=== PATIENT | female | born 1960 | race Caucasian/White ===

== ENCOUNTER 2020-06-11 20:49 | Emergency (ER) | payer MEDICAID, SELFPAY ==
[2020-06-11 21:04] VITALS: BP 143/85; PULSE 88; RESP 18; TEMP 37; O2SAT 97; BMI 34.5
--- NOTE | 2020-06-11 22:00 | ED_ITS ---
HPI - General Adult General Chief complaint: General Medical Stated complaint: FLU LIKE SYMPTOMS Time Seen by Provider: 06/11/20 22:00 Source: patient and seismic interpreter Mode of arrival: ambulatory Limitations: no limitations History of Present Illness HPI narrative: This is a 59-year-old female with past medical history of hypertension who presents with onset of body aches today and was exposed to a COVID-19 positive individual on Wednesday. Otherwise, patient denies any fevers, chills, sore throat, cough, shortness of breath, chest pain /palpitations, GI symptoms, or symptoms. Related Data Allergies Allergy/AdvReac Type Severity Reaction Status Date / Time shrimp [SHRIMP] Allergy Severe ANAPHYLAXIS Verified 06/11/20 21:04 Review of Systems Review of Systems: Pertinent positives and negatives as stated in HPI 10 point review of systems is otherwise negative. [facility] Past Medical History Source: nursing notes reviewed Medical History Glaucoma HTN (hypertension) Thyroid activity decreased Social History Social History Advance Directives: No Advance Directives Information Provided: Yes Physical Exam Vital Signs: Vital Signs: Vital Signs Temp Pulse Resp BP Pulse Ox 06/11/20 21:04 98.6 F 88 18 143/85 H 97 Body Mass Index 34.5 VITAL SIGNS: Reviewed. GENERAL: Well developed, well nourished, in no acute distress. HEAD: Normocephalic/atraumatic, EYES: PERRLA, EOMI intact without pain, no nystagmus/pallor/icterus noted EARS: Ext canals without abnormality, TMs non-bulging and non-erythematous NOSE: Nares patent bilateral OROPHARYNX: no oral lesions noted, posterior pharynx clear and non-erythematous without noted tonsillar enlargement/erythema/exudates NECK: Supple, no adenopathy LUNGS: Normal breath sounds. No adventitious sounds or accessory muscle use. SpO2<97%> CARDIOVASCULAR: Regular rate and rhythm without noted murmurs, no JVD or lower extremity edema. ABDOMEN: Soft, non-tender, non-distended with bowel sounds. No rigidity. No guarding. No palpable masses or hernias noted MUSCULOSKELETAL: No tenderness, deformities, or effusions noted on gross insp ection. EXTREMITIES: No cyanosis, clubbing or edema. SKIN: Inspection of the skin reveals no rashes, ulcerations, jaundice, pallor, or petechiae. NEUROLOGIC: Alert and oriented x 4. Strength and sensation to light touch were grossly intact x 4. Course Course Course Narrative: This is a 59-year-old female with history and clinical presentation most consistent with likely viral syndrome and will be tested for COVID-19 as she was exposed. Due to negative history and clinical presentation no other lab work or imaging is indicated at this time. Discharge Plan Discharge Clinical Impression: Acute viral syndrome Patient Disposition: Home, Self-Care Instructions: Viral Syndrome (ED) Additional Instructions: 1. Incrementar la hidrataci?n de los fluidos, especialmente con agua. 2. Efraín un seguimiento con benjamin proveedor de atenci?n primaria llamando al consultorio por la ma?joy para establecer henry carlos de seguimiento. 3. Debe permanecer en cuarentena hasta que lo llamen con los resultados de COVID-19. 4. Puede tratar watson albert corporales con Tylenol o ibuprofeno de venta tomy romi se indica en el empaque exterior. El paciente y / o la jeanne reconocen que comprenden los resultados (seg?n corresponda), el diagn?stico, el plan de tratamiento, la necesidad de seguimiento y los s?ntomas que deber?an impulsar el regreso a la wenceslao de emergencias. Referrals: Physician,Unknown [Primary Care Provider] - 2 days ( Follow-up for viral syndrome) Print Language: Palestinian
== END 2020-06-11 22:28 | disposition home or self-care (01) ==
PROVIDERS: Emergency Provider Student in an Organized Health Care Education/Training Program
DX: B34.9 Viral infection, unspecified (principal); Z20.828 Contact with and (suspected) exposure to other viral communicable diseases; I10 Essential (primary) hypertension
CPT/HCPCS: 87635; 99283

== ENCOUNTER 2020-06-20 09:59 | Outpatient (REF) | payer MEDICAID, SELFPAY | END 2020-06-20 10:00 | disposition home or self-care (01) | LOC: HO.LAB 09:59 | PROVIDERS: PCP Internal Medicine; Visit Provider Internal Medicine | DX: Z20.828 Contact with and (suspected) exposure to other viral communicable diseases (principal) | CPT/HCPCS: 87635 ==

== ENCOUNTER 2020-10-02 09:37 | Outpatient (REF) | payer MEDICAID, SELFPAY | END 2020-10-02 09:38 | disposition home or self-care (01) | LOC: HO.LAB 09:37 | PROVIDERS: Visit Provider Internal Medicine | DX: Z20.822 Contact with and (suspected) exposure to COVID-19 (principal) | CPT/HCPCS: 36415; C9803; U0003; U0005 ==

== ENCOUNTER 2021-02-07 10:36 | Outpatient (REF) | payer MEDICAID, SELFPAY ==
--- NOTE | ~2021-02-07 | MM_ITS ---
EXAMINATION: MM SCREENING DIGITAL BREAST TOMOSYNTHESIS, BILATERAL CLINICAL INFORMATION: Screening. Asymptomatic. The lifetime risk of breast cancer based on the Tyrer-Cuzick Model is 5%. COMPARISON: Mammography: 08/12/2018 (new baseline) TECHNIQUE: Digital breast tomosynthesis is performed in both the craniocaudal and mediolateral oblique views along with computer-aided detection (CAD). Synthesized 2D images are generated from the tomosynthesis. FINDINGS: There are scattered areas of fibroglandular density (ACR BI-RADS breast composition Category b). There are no significant masses, abnormal calcifications, or other abnormalities. Parenchymal pattern is similar to prior new baseline exam. The axilla and skin contours are unremarkable. MM/MM tomosynthesis screening BI IMPRESSION: No mammographic evidence of malignancy. ASSESSMENT: BI-RADS 1: Negative RECOMMENDATION: Routine annual mammography screening. This patient's information was entered into a reminder system with a target due date for their next mammogram.
== END 2021-02-07 10:37 | disposition home or self-care (01) ==
LOC: HO.MAMMO 10:36
PROVIDERS: PCP Internal Medicine; Visit Provider Internal Medicine
DX: Z12.31 Encounter for screening mammogram for malignant neoplasm of breast (principal)
CPT/HCPCS: 77063; 77067

== ENCOUNTER 2021-06-02 12:41 | Emergency (ER) | payer MEDICAID, SELFPAY ==
[2021-06-02 13:19] VITALS: BP 163/103; PULSE 79; RESP 18; TEMP 37.6; O2SAT 97; BMI 33.8
[2021-06-02 18:28] LABS: COVID-19 Test Negative (Negative)
[2021-06-02 19:18] VITALS: BP 178/105; PULSE 82; RESP 18; TEMP 36.8; O2SAT 96
--- NOTE | 2021-06-02 20:08 | ED.URI ---
HPI - URI/Sore Throat General Chief Complaint: Upper Respiratory Symptoms Stated Complaint: sore throat Time Seen by Provider: 06/02/21 20:02 Source: patient and old records reviewed History of Present Illness HPI Narrative: Patient presents with 1 week of cough and occasional wheezing. History of COVID-19 infection in 2019. No recent exposures. No fevers or chills. She states occasionally she feels like she is wheezing. She does not have an asthma inhaler anymore. Positive sore throat. No difficulty swallowing. No nausea or vomiting or abdominal symptoms Related Data Previous Rx's Medication Instructions Recorded acetaminophen 325 mg-DM 10 mg/10 20 ml PO Q4H PRN #237 ml 06/02/21 mL oral liquid (Robitussin Cough-Sore Throat) albuterol sulfate 90 mcg/actuation 2 puff INHALATION QID PRN #6.7 g 06/02/21 aerosol inhaler prednisone 20 mg tablet 40 mg PO DAILY #10 tab 06/02/21 Allergies Allergy/AdvReac Type Severity Reaction Status Date / Time shrimp [SHRIMP] Allergy Severe ANAPHYLAXIS Verified 06/11/20 21:04 Review of Systems Constitutional: Constitutional: Denies fever(s) Cardiovascular: Cardiovascular: Denies chest pain Respiratory: Respiratory: Reports chest congestion and Reports cough Comments: No phlegm. Positive wheezing Gastrointestinal: Comments: No nausea vomiting or abdominal pain Integumentary/Breasts: Comments: No rash PMFSH Past Medical History Medical History (Updated 06/02/21 @ 20:13 by Jeromy Gonzalez MD) Asthma Glaucoma HTN (hypertension) Thyroid activity decreased Social History Social History Alcohol intake: never Advance Directives: No Physical Exam Vital Signs: Vital Signs: Last Vital Signs Temp 98.3 F 06/02/21 19:18 Pulse 82 06/02/21 19:18 Resp 18 06/02/21 19:18 BP 178/105 H 06/02/21 19:18 Pulse Ox 96 06/02/21 19:18 Body Mass Index 33.8 Hypertensive. Heart rate normal. Oxygen saturation 96% Const: Other: Awake and alert and in no acute distress HENMT: Other: Minimal pharyngeal erythema without exudate or swelling. No anterior lymphadenopathy. Mild clear rhinorrhea Resp: Other: Clear bilaterally but mildly diminished. No obvious wheezing at the moment Cardio: Other: Regular rate and rhythm without murmurs rubs or gallops GI: Other: Soft nontender nondistended Skin: Other: Warm pink and dry without rash Course Course Course Narrative: COVID-19 infection Viral URI No evidence of bacterial infection Avid rapid ID COVID swab is negative. Patient is approximately 1 year post COVID infection and relatively low risk. Likely other viral source URI. Will prescribe Robitussin for the cough Prednisone and albuterol for her asthma MDM - URI/Sore Throat Lab Data Labs: Lab Results 06/02/21 Range/Units 18:05 COVID-19 (EAN) Negative (Negative) COVID-19 Clin Com See Note Discharge Plan Discharge Clinical Impression: Upper respiratory infection Qualifiers: URI type: unspecified viral URI Qualified Code(s): J06.9 - Acute upper respiratory infection, unspecified Asthma Qualifiers: Asthma severity: mild Asthma persistence: intermittent Asthma complication type: with acute exacerbation Qualified Code(s): J45.21 - Mild intermittent asthma with (acute) exacerbation Patient Disposition: Home, Self-Care Instructions: Asthma (ED), Upper Respiratory Infection (ED) Prescriptions: New Robitussin Cough-Sore Throat 325-10 mg/10 mL liquid 20 ml PO Q4H PRN (Reason: cold symptoms) Qty: 237 RF: 0 prednisone 20 mg tablet 40 mg PO DAILY Qty: 10 RF: 0 albuterol sulfate 90 mcg/actuation HFA aerosol inhaler 2 puff inhalation QID PRN (Reason: shortness of breath or wheezing) Qty: 6.7 RF: 0
== END 2021-06-02 20:23 | disposition home or self-care (01) ==
PROVIDERS: Emergency Provider Emergency Medicine; PCP Internal Medicine
DX: J45.21 Mild intermittent asthma with (acute) exacerbation (principal); J06.9 Acute upper respiratory infection, unspecified; I10 Essential (primary) hypertension; Z20.822 Contact with and (suspected) exposure to COVID-19
CPT/HCPCS: 36415; 87635; 99283

== ENCOUNTER 2021-12-27 04:18 | Emergency (ER) | payer MEDICAID, SELFPAY ==
[2021-12-27 04:36] VITALS: BP 183/87; BP 185/93; PULSE 83; RESP 16; TEMP 36; TEMP 36.6; O2SAT 96; O2SAT 97; BMI 33.6
[2021-12-27 05:07] LABS: COVID-19 Test Negative (Negative); IDNOW Serial# 16C4AD1C; Influenza A Negative (Negative); Influenza B2 Negative (Negative)
[2021-12-27 06:01] VITALS: BP 184/99; PULSE 75; RESP 20; TEMP 36.8; O2SAT 98
--- NOTE | 2021-12-27 07:15 | ED_ITS ---
HPI - Headache General Chief Complaint: Headache Stated Complaint: migraine & vomiting Time Seen by Provider: 12/27/21 07:13 History of Present Illness HPI Narrative: Patient is 61 years old presents today with having headache mainly over the left side. There is positive photophobia there is no neck pain is no fever the pain is similar to previous bouts of migraine. There is no focal weakness. Patient from home. Light makes the headache worse sound makes the headache worse. Barbara ent from home. Related Data Previous Rx's Medication Instructions Recorded acetaminophen 325 mg-DM 10 mg/10 20 ml PO Q4H PRN #237 ml 06/02/21 mL oral liquid (Robitussin Cough-Sore Throat) albuterol sulfate 90 mcg/actuation 2 puff INHALATION QID PRN #6.7 g 06/02/21 aerosol inhaler prednisone 20 mg tablet 40 mg PO DAILY #10 tab 06/02/21 ibuprofen 400 mg tablet 400 mg PO Q6H PRN #20 tab 12/27/21 ondansetron 4 mg disintegrating 4 mg PO TID PRN 5 Days #10 tab 12/27/21 tablet Allergies Allergy/AdvReac Type Severity Reaction Status Date / Time shrimp [SHRIMP] Allergy Severe ANAPHYLAXIS Verified 06/11/20 21:04 Review of Systems Review of Systems: Positive headache positive nausea positive vomiting Yes all other systems are reviewed and are negative PMFSH Past Medical History Attestation statement: The following information was validated with the patient. Medical History Asthma Glaucoma HTN (hypertension) Thyroid activity decreased Social History Social History Alcohol intake: never Patient Tobacco Use Status: Never used Tobacco Use of substances other than those prescribed or required for medical reasons: No Advance Directives: No Advance Directives Information Provided: Yes Physical Exam Vital Signs: Vital Signs: Last Vital Signs Temp 98.3 F 12/27/21 06:01 Pulse 81 12/27/21 07:38 Resp 16 12/27/21 07:38 BP 170/91 H 12/27/21 07:38 Pulse Ox 96 12/27/21 07:38 BMI result Body Mass Index 33.6 Appearance: Alert. Oriented X3. No acute distress. Eyes: Pupils equal, round and reactive to light. ENT: Pharynx normal. Neck: Normal inspection. Neck supple. No lymph nodes noted. No crepitus CVS: Normal heart rate and rhythm. Pulses normal. Normal S1 and S2 Respiratory: No respiratory distress. Breath sounds normal. No Wheezing. No rales Abdomen: Soft and nontender. No rigidity. No distention. good BS x4 Skin: Skin warm and dry. Normal skin color. Normal skin turgor. Extremities: No lower extremity edema. Neurovascular intact to all extremities. No Lacerations. No Rash Neuro: Oriented X 3. No motor deficit. No sensory deficit. Moving all extermities. No slurred speech MDM - Headache MDM Narrative Medical decision making narrative: Patient given treatment for migraine including Reglan Toradol Benadryl with good results. Headache completely resolved. Patient's intra-ocular pressure was 12 OS, OD. Will discharge patient home. In stable condition. Differential Diagnosis Differential diagnosis: Likely migraine Medical Records Attestation: I reviewed the patient's medical records. Lab Data Attestation: I reviewed the patient's lab results. Labs: Lab Results 12/27/21 12/27/21 Range/Units 04:41 04:41 COVID-19 (EAN) Negative (Negative) COVID-19 Clin Com See Note Influenza Type A (JUAN) Negative (Negative) Influenza Type B (JUAN) Negative (Negative) Influenza A & B Note See Note Discharge Plan Discharge Clinical Impression: Migraine Patient Disposition: Home, Self-Care Instructions: Migraine Headache (ED) Prescriptions: New ibuprofen 400 mg tablet 400 mg PO Q6H PRN (Reason: pain) Qty: 20 0RF ondansetron 4 mg tablet,disintegrating 4 mg PO TID PRN (Reason: nausea and vomiting) 5 Days Qty: 10 0RF No Action Robitussin Cough-Sore Throat 325-10 mg/10 mL liquid 20 ml PO Q4H PRN (Reason: cold symptoms) Qty: 237 0RF prednisone 20 mg tablet 40 mg PO DAILY Qty: 10 0RF albuterol sulfate 90 mcg/actuation HFA aerosol inhaler 2 puff inhalation QID PRN (Reason: shortness of breath or wheezing) Qty: 6.7 0RF Referrals: Francisca Perez MD [Primary Care Provider] - Print Language: Malay
[2021-12-27 07:38] VITALS: BP 170/91; PULSE 81; RESP 16; O2SAT 96
[2021-12-27] MEDS: diphenhydrAMINE HCL 50 MG/ML VIAL 25 MG IVPUSH (07:54)
[2021-12-27] MEDS: Ketorolac Tromethamine 30 MG/ML VIAL IVPUSH (07:55)
[2021-12-27] MEDS: Metoclopramide HCl 10 MG/2 ML VIAL IVPUSH (07:57)
[2021-12-27] MEDS: 0.9 % Sodium Chloride 1,000 ML 999 ML IV (08:00)
--- NOTE | 2021-12-27 08:03 | PC.NURSE ---
pt a&ox3, vss - bp elevated, hx of hypertension, 20G IV placed right hand, medicated per provider order, flds running. edging machine feeder in room. family at bedside.
[2021-12-27 09:09] VITALS: BP 152/71; PULSE 89; RESP 18; TEMP 36.7; O2SAT 96
== END 2021-12-27 09:13 | disposition home or self-care (01) ==
PROVIDERS: Emergency Provider Emergency Medicine Emergency Medical Services; PCP Internal Medicine
DX: G43.009 Migraine without aura, not intractable, without status migrainosus (principal); I10 Essential (primary) hypertension; J45.909 Unspecified asthma, uncomplicated; Z20.822 Contact with and (suspected) exposure to COVID-19
CPT/HCPCS: 87502; 87635; 96361; 96374; 96375; 99284; 99285; J1200; J1885; J2765

== ENCOUNTER 2022-02-12 11:36 | Outpatient (REF) | payer MEDICAID, SELFPAY ==
--- NOTE | ~2022-02-12 | MM_ITS ---
EXAMINATION: MM SCREENING DIGITAL BREAST TOMOSYNTHESIS, BILATERAL CLINICAL INFORMATION: Screening. Asymptomatic. The lifetime risk of breast cancer based on the Tyrer-Cuzick Model is 5%. COMPARISON: Mammography: February 07, 2021 and August 12, 2018 TECHNIQUE: Digital breast tomosynthesis is performed in both the craniocaudal and mediolateral oblique views along with computer-aided detection (CAD). Synthesized 2D images are generated from the tomosynthesis. FINDINGS: There are scattered areas of fibroglandular density (ACR BI-RADS breast composition Category b). There are no significant masses, abnormal calcifications, or other abnormalities. MM/MM tomosynthesis screening BI IMPRESSION: There are no significant changes from prior study. ASSESSMENT: BI-RADS 1: Negative RECOMMENDATION: Routine annual mammography screening. This patient's information was entered into a reminder system with a target due date for their next mammogram.
== END 2022-02-12 11:37 | disposition home or self-care (01) ==
LOC: HO.MAMMO 11:36
PROVIDERS: PCP Internal Medicine; Visit Provider Internal Medicine
DX: Z12.31 Encounter for screening mammogram for malignant neoplasm of breast (principal)
CPT/HCPCS: 77063; 77067

== ENCOUNTER 2022-03-14 16:50 | Emergency (ER) | payer MEDICAID, SELFPAY ==
[2022-03-14 17:44] VITALS: BP 122/66; PULSE 84; RESP 18; TEMP 36.9; O2SAT 95; BMI 33.3
[2022-03-14 18:27] LABS: MANUAL DIFF FLAG NO
[2022-03-14 18:30] LABS: Basophils Absolute Auto 0.1 X10*3/uL (0.0-0.2); Basophils Percent Auto 0.4 % (0-2); Eosinophils Absolute Auto 0.1 X10*3/uL (0.0-0.4); Eosinophils Percent Auto 0.4 % (0-4); Hematocrit 43.4 % (37.0-47.0); Hemoglobin 14.2 g/dl (12.0-16.0); Imm Gran Abs Auto 0.05 X10*3/uL (0.00-0.03); Imm Gran Pct Auto 0.4 % (0.0-0.4); Lymphocytes Absolute Auto 4.5 X10*3/uL (1.2-4.9); Lymphocytes Percent Auto 34.8 % (20-40); Mean Corpuscular HGB Conc 32.7 g/dl (31.0-35.0); Mean Corpuscular Hemoglobin 30.5 pg (27.0-33.0); Mean Corpuscular Volume 93.3 fL (80.0-98.0); Mean Platelet Volume 10.1 fL (9.4-12.3); Monocytes Absolute Auto 1.1 X10*3/uL (0.1-1.2); Monocytes Percent Auto 8.7 % (2-11); Neutrophils Absolute Auto 7.1 x10*3/uL (2.0-8.3); Neutrophils Percent Auto 55.3 % (45-73); Platelet Count 347 X10*3/uL (160-400); Red Blood Count 4.65 X10*6/uL (4.20-5.50); Red Cell Distribution Width 13.8 % (11.0-16.0); White Blood Count 12.8 X10*3/uL (4.8-10.8)
[2022-03-14 18:58] LABS: Anion Gap 16 (12-20); Blood Urea Nitrogen 23 mg/dL (9-16); Calcium 9.4 mg/dL (8.4-10.2); Carbon Dioxide 23 mmol/L (22-29); Chloride 102 mmol/L (96-108); Creatinine Clr Calc Pharmacy 58.6; Estimated Glomerular Filt Rate 52; Glucose Random 128 mg/dL (60-115); Lipase 47 U/L (8-78); Potassium 3.5 mmol/L (3.3-5.1); Sodium 137 mmol/L (135-145)
[2022-03-15 01:47] VITALS: BP 145/75; PULSE 93; RESP 14; O2SAT 97
[2022-03-15 02:26] LABS: Alanine Aminotransferase 20 U/L (0-31); Albumin Level 4.3 g/dL (3.5-5.0); Alkaline Phosphatase 100 U/L (39-117); Aspartate Amino Transferase 15 U/L (5-31); Bilirubin Direct < 0.2 mg/dL (0.0-0.5); Bilirubin Total 0.3 mg/dL (0.0-1.0); Total Protein 8.2 g/dL (6.5-8.0)
--- NOTE | 2022-03-15 03:17 | ED_ITS ---
HPI - Abdominal Pain General Chief Complaint: Abdominal Pain Stated Complaint: abdominal pain, feeling of weakness Time Seen by Provider: 03/15/22 01:48 Source: patient Mode of arrival: ambulatory Limitations: language barrier (Uzbek speaking only, computer hardware technician used) History of Present Illness HPI narrative: 61-year-old female who presents emergency department for evaluation of abdominal pain x2 weeks, worse in the last week. The patient states that she feels like her abdomen is bloated. She states that she has had a constant pain in her upper abdomen, worse in the epigastric area. The pain waxes and wanes in intensity and is 8/10 at its worst. The patient states that the pain is exacerbated by eating food in she develops pain immediately after eating. She states she is feeling very weak. She states that whenever she gets severe abdominal pain she also gets a headache. She states that she had 3 normal bowel movements yesterday. She denied fever, chills, rhinorrhea, sore throat, cough, chest pain, shortness of breath, nausea, vomiting or diarrhea. She has not noticed any dark black stools or bloody stools. Patient also states she was diagnosed with bronchitis 1 week prior and was given a Z-Sg which she completed. MD elicited complaint: abdominal pain Pain Consistency: constant (Waxes and wanes in intensity) Location: epigastric, LUQ and RUQ Severity: severe Pain scale (0-10): 8 Quality: other (Bloated sensation) Radiation: none Migration to: no migration Exacerbating factors: eating Relieving factors: nothing Related Data Previous Rx's Medication Instructions Recorded acetaminophen 325 mg-DM 10 mg/10 20 ml PO Q4H PRN cold symptoms 06/02/21 mL oral liquid (Robitussin #237 mL Cough-Sore Throat) albuterol sulfate 90 mcg/actuation 2 puff inhalation QID PRN 06/02/21 aerosol inhaler shortness of breath or wheezing #6.7 grams prednisone 20 mg tablet 40 mg PO DAILY #10 tabs 06/02/21 ibuprofen 400 mg tablet 400 mg PO Q6H PRN pain #20 tabs 12/27/21 ondansetron 4 mg disintegrating 4 mg PO TID PRN nausea and 12/27/21 tablet vomiting 5 days #10 tabs omeprazole 20 mg capsule,delayed 20 mg PO DAILY 30 days #30 caps 03/15/22 release Allergies Allergy/AdvReac Type Severity Reaction Status Date / Time shrimp [SHRIMP] Allergy Severe ANAPHYLAXIS Verified 03/14/22 17:49 Review of Systems Review of Systems Yes all other systems are reviewed and are negative [facility] Past Medical History [facility] Narrative: Past surgical history: Hernia repair. Social history: She denies tobacco, alcohol and drug use. Medical History Asthma Glaucoma HTN (hypertension) Thyroid activity decreased Social History Social History Alcohol intake: never Patient Tobacco Use Status: Never used Tobacco Advance Directives: No Physical Exam ED Vital Signs: Vital Signs - 24 hr 03/14/22 17:44 03/15/22 01:47 Temperature 98.5 F Pulse Rate 84 93 Respiratory Rate 18 14 Blood Pressure 122/66 145/75 H Pulse Oximetry 95 97 Oxygen Delivery Method Room Air Room Air BMI result Body Mass Index 33.3 Const General: cooperative and no acute distress Orientation/consciousness: oriented to person and oriented to place Limitations: no limitations HENMT Head: Yes normal to inspection, Yes normocephalic and Yes atraumatic Ears: external ears normal General nose exam: Normal external nose present Face and sinus: Yes normal facial exam Mouth: Normal oral and palatal mucosa present Throat: Yes posterior oropharynx normal Eyes General: appearance normal, both eyes and all related structures Pupils: Equal, round and reactive pupils present Neck Neck: Yes normal visual inspection, Yes no lymphadenopathy, Yes trachea midline and Yes supple Chest Chest palpation & inspection: normal inspection of the chest and normal palpation of entire chest wall Resp Effort & Inspection: normal respiratory effort and able to speak in complete sentences Auscultation: clear to auscultation bilaterally Cardio Rate: regular rate Rhythm: regular rhythm Heart sounds: S1 normal heart sound present, S2 normal heart sound present and no murmurs GI Inspection: Yes normal to inspection Palpation (GI): Soft to palpation, nontender and no guarding Auscultation: normal bowel sounds General: Yes no CVA tenderness Back/Spine/Pelvis Back: no CVA tenderness Skin General skin exam: no rashes or lesions noted Neuro General: oriented to person and oriented to place Cranial nerves: Yes CN's II-XII intact bilaterally and Yes Equal, round and reactive pupils present Cognition (Neuro): normal cognition Motor exam (neuro): 5/5 motor strength present throughout Extrem General: Yes normal to inspection Psych Appearance: grossly normal Speech and movement: Normal speech and movement present Affect: normal affect Attitude: cooperative Thought process: Normal thought process present Thought content: Normal thought content present Course Course Course Narrative: 61-year-old female who presents emergency department for evaluation of 2 weeks of constant upper abdominal pain that waxes and wanes in intensity, 8/10 at its worse, pain exacerbated immediately after eating. The patient had no fever, chills, nausea or vomiting. Vital signs were unremarkable and her abdominal exam revealed no abdominal tenderness. 0324: Laboratory evaluation: WBC elevated 12,800. BUN elevated 23. Glucose elevated 128. LFTs were normal. Lipase was normal. Given the fact the patient has no abdominal tenderness her laboratory evaluation is relatively unremarkable except for the elevated white blood cell count, I suspect the patient's pain is more consistent with gastritis as opposed to acute cholecystitis or appendicitis. I did discuss this with the patient. Patient was started on omeprazole 20 mg once a day for 1 month. The patient was given Maalox 30 cc, viscous lidocaine 10 cc and 10 cc orally for her pain. She was advised to take Tylenol for pain. She was given printed and verbal instructions and discharged home. MDM - Abdominal Pain Lab Data Result diagrams: 03/14/22 18:22 03/14/22 18:22 Labs: Lab Results 03/14/22 03/14/22 Range/Units 18:22 18:22 WBC 12.8 H (4.8-10.8) X10*3/uL RBC 4.65 (4.20-5.50) X10*6/uL Hgb 14.2 (12.0-16.0) g/dl Hct 43.4 (37.0-47.0) % MCV 93.3 (80.0-98.0) fL MCH 30.5 (27.0-33.0) pg MCHC 32.7 (31.0-35.0) g/dl RDW 13.8 (11.0-16.0) % Plt Count 347 (160-400) X10*3/uL MPV 10.1 (9.4-12.3) fL Immature Gran % (Auto) 0.4 (0.0-0.4) % Neut % (Auto) 55.3 (45-73) % Lymph % (Auto) 34.8 (20-40) % [place] % (Auto) 8.7 (2-11) % Eos % (Auto) 0.4 (0-4) % Baso % (Auto) 0.4 (0-2) % Lymph # (Auto) 4.5 (1.2-4.9) X10*3/uL [place] # (Auto) 1.1 (0.1-1.2) X10*3/uL Eos # (Auto) 0.1 (0.0-0.4) X10*3/uL Baso # (Auto) 0.1 (0.0-0.2) X10*3/uL Abs Immat Gran (auto) 0.05 H (0.00-0.03) X10*3/uL Absolute Neuts (auto) 7.1 (2.0-8.3) x10*3/uL Absolute Nucleated RBC 0.000 (0.0-0.012) X10*3/uL Nucleated RBC % (auto) 0.0 (0.0-0.2) /100WBC Sodium 137 (135-145) mmol/L Potassium 3.5 (3.3-5.1) mmol/L Chloride 102 (96-108) mmol/L Carbon Dioxide 23 (22-29) mmol/L Anion Gap 16 (12-20) BUN 23 H (9-16) mg/dL Creatinine 1.07 (0.5-1.4) mg/dL Estim Creat Clear Calc 58.6 Estimated GFR 52 Random Glucose 128 H (60-115) mg/dL Calcium 9.4 (8.4-10.2) mg/dL Total Bilirubin 0.3 (0.0-1.0) mg/dL Direct Bilirubin < 0.2 (0.0-0.5) mg/dL AST 15 (5-31) U/L ALT 20 (0-31) U/L Alkaline Phosphatase 100 (39-117) U/L Total Protein 8.2 H (6.5-8.0) g/dL Albumin 4.3 (3.5-5.0) g/dL Lipase 47 (8-78) U/L Discharge Plan Discharge Clinical Impression: Gastritis Patient Disposition: Home, Self-Care Instructions: Gastritis (ED) Additional Instructions: Your blood work was normal. Your abdominal exam revealed no tenderness when I push on your belly which is reassuring. I believe your pain is caused by inflammation of your stomach (gastritis). I am prescribing Prilosec (omeprazole) 20 mg once a day for 1 month. Take Tylenol (acetaminophen) 500 mg pills, 2 pills every 4 to 6 hours as needed for pain. Follow-up with your doctor in 2 days. Please return to the emergency department if your symptoms get worse or if you develop any symptoms that are concerning to you. Prescriptions: New omeprazole 20 mg capsule,delayed release(DR/EC) 20 mg PO DAILY 30 Days Qty: 30 0RF No Action Robitussin Cough-Sore Throat 325-10 mg/10 mL liquid 20 ml PO Q4H PRN (Reason: cold symptoms) Qty: 237 0RF prednisone 20 mg tablet 40 mg PO DAILY Qty: 10 0RF albuterol sulfate 90 mcg/actuation HFA aerosol inhaler 2 puff inhalation QID PRN (Reason: shortness of breath or wheezing) Qty: 6.7 0RF ibuprofen 400 mg tablet 400 mg PO Q6H PRN (Reason: pain) Qty: 20 0RF ondansetron 4 mg tablet,disintegrating 4 mg PO TID PRN (Reason: nausea and vomiting) 5 Days Qty: 10 0RF Print Language: Uzbek
[2022-03-15] MEDS: Lidocaine HCl Viscous 2 % 15 ML SOLUTION 10 ML PO (04:11)
[2022-03-15] MEDS: Magnesium Hydrox/Alum Hydrox 30 ML ORAL.SUSP PO (04:11)
[2022-03-15] MEDS: PHENobarb/Hyoscy/Atropine/Scop 10 ML ELIXIR PO (04:11)
== END 2022-03-15 04:22 | disposition home or self-care (01) ==
PROVIDERS: Emergency Provider Emergency Medicine Emergency Medical Services; PCP Internal Medicine
DX: K29.70 Gastritis, unspecified, without bleeding (principal); R10.12 Left upper quadrant pain; R10.11 Right upper quadrant pain; Z79.899 Other long term (current) drug therapy
CPT/HCPCS: 36415; 80048; 80076; 83690; 85025; 99283

== ENCOUNTER 2023-02-18 10:34 | Outpatient (REF) | payer MEDICAID, SELFPAY ==
--- NOTE | ~2023-02-18 | MM_ITS ---
EXAMINATION: MM SCREENING DIGITAL BREAST TOMOSYNTHESIS, BILATERAL CLINICAL INFORMATION: Screening. Asymptomatic. The lifetime risk of breast cancer based on the Tyrer-Cuzick Model is 5%. COMPARISON: Mammography: This study is compared with prior mammograms dating back to 2018. TECHNIQUE: Digital breast tomosynthesis is performed in both the craniocaudal and mediolateral oblique views along with computer-aided detection (CAD). Synthesized 2D images are generated from the tomosynthesis. FINDINGS: There are scattered areas of fibroglandular density (ACR BI-RADS breast composition Category b). There are no significant masses, abnormal calcifications, or other abnormalities. MM/MM tomosynthesis screening BI IMPRESSION: No mammographic evidence of malignancy. ASSESSMENT: BI-RADS BI-RADS 1 - Negative RECOMMENDATION: Routine annual mammography screening. 1 year F/U This patient's information was entered into a reminder system with a target due date for their next mammogram.
== END 2023-02-18 10:35 | disposition home or self-care (01) ==
LOC: HO.MAMMO 10:34
PROVIDERS: PCP Internal Medicine; Visit Provider Internal Medicine
DX: Z12.31 Encounter for screening mammogram for malignant neoplasm of breast (principal)
CPT/HCPCS: 77063; 77067

== ENCOUNTER → 2023-02-18 11:15 | Outpatient (BNV) | payer MEDICAID, SELFPAY | PROVIDERS: PCP Internal Medicine; Visit Provider Radiology Diagnostic Radiology | DX: Z12.31 Encounter for screening mammogram for malignant neoplasm of breast (principal) | CPT/HCPCS: 77063; 77067 ==

== ENCOUNTER 2023-09-09 08:41 | Outpatient (REF) | payer MEDICAID, SELFPAY ==
[2023-09-09 12:01] LABS: MANUAL DIFF FLAG NO
[2023-09-09 12:19] LABS: Estimated Average Glucose 111 mg/dL; Hemoglobin A1c % 5.5 % (<6.0)
[2023-09-09 12:21] LABS: Basophils Absolute Auto 0.1 X10*3/uL (0.0-0.2); Basophils Percent Auto 1.1 % (0-2); Eosinophils Absolute Auto 0.1 X10*3/uL (0.0-0.4); Hematocrit 41.3 % (37.0-47.0); Hemoglobin 13.4 g/dl (12.0-16.0); Imm Gran Abs Auto 0.02 X10*3/uL (0.00-0.03); Imm Gran Pct Auto 0.4 % (0.0-0.4); Lymphocytes Absolute Auto 2.3 X10*3/uL (1.2-4.9); Lymphocytes Percent Auto 42.4 % (20-40); Mean Corpuscular HGB Conc 32.4 g/dl (31.0-35.0); Mean Corpuscular Hemoglobin 30.8 pg (27.0-33.0); Mean Corpuscular Volume 94.9 fL (80.0-98.0); Mean Platelet Volume 11.1 fL (9.4-12.3); Monocytes Absolute Auto 0.5 X10*3/uL (0.1-1.2); Monocytes Percent Auto 9.3 % (2-11); Neutrophils Absolute Auto 2.4 x10*3/uL (2.0-8.3); Neutrophils Percent Auto 44.8 % (45-73); Platelet Count 319 X10*3/uL (160-400); Red Blood Count 4.35 X10*6/uL (4.20-5.50); Red Cell Distribution Width 13.6 % (11.0-16.0); White Blood Count 5.4 X10*3/uL (4.8-10.8)
[2023-09-09 13:01] LABS: Alanine Aminotransferase 21 U/L (0-31); Alkaline Phosphatase 95 U/L (39-117); Anion Gap 13 (12-20); Aspartate Amino Transferase 19 U/L (5-31); Bilirubin Direct 0.2 mg/dL (0.0-0.5); Bilirubin Total 0.4 mg/dL (0.0-1.0); Blood Urea Nitrogen 16 mg/dL (9-16); Calcium 9.6 mg/dL (8.4-10.2); Carbon Dioxide 26 mmol/L (22-29); Chloride 107 mmol/L (96-108); Cholesterol 210 mg/dL (<200); Estimated Glomerular Filt Rate > 60; Glucose Random 102 mg/dL (60-115); HDL Cholesterol 52 mg/dL (>40); LDL Cholesterol Calculated 129 mg/dL (<100); Potassium 3.7 mmol/L (3.3-5.1); Sodium 142 mmol/L (135-145); Total Protein 7.9 g/dL (6.5-8.0); Triglycerides 145 mg/dL (<150)
== END 2023-09-09 08:42 | disposition home or self-care (01) ==
LOC: HO.HHCL 08:41
PROVIDERS: Visit Provider Internal Medicine
DX: I10 Essential (primary) hypertension (principal)
CPT/HCPCS: 36415; 80048; 80061; 80076; 83036; 85025

== ENCOUNTER 2023-09-21 15:28 | Outpatient (REF) | payer MEDICAID, SELFPAY ==
[2023-09-28 04:38] LABS: HPV mRNA E6/E7 rflx Not Detected (Not Detected)
== END 2023-09-21 15:29 | disposition home or self-care (01) ==
LOC: HO.CHCLNP 15:28
PROVIDERS: Visit Provider Advanced Practice Midwife
DX: R87.610 Atypical squamous cells of undetermined significance on cytologic smear of cervix (ASC-US) (principal)
CPT/HCPCS: 87624; 88142

== ENCOUNTER 2024-03-03 09:53 | Outpatient (REF) | payer MEDICAID, SELFPAY | END 2024-03-03 09:54 | disposition home or self-care (01) | LOC: HO.MAMMO 09:53 | PROVIDERS: Visit Provider Internal Medicine | DX: Z12.31 Encounter for screening mammogram for malignant neoplasm of breast (principal) | CPT/HCPCS: 77063; 77067 ==

== ENCOUNTER → 2024-03-03 10:00 | Outpatient (BNV) | payer MEDICAID, SELFPAY | PROVIDERS: Visit Provider Radiology Diagnostic Radiology | DX: Z12.31 Encounter for screening mammogram for malignant neoplasm of breast (principal) | CPT/HCPCS: 77063; 77067 ==

== ENCOUNTER 2025-03-09 09:45 | Outpatient (REF) | payer MEDICAID, SELFPAY | END 2025-03-09 09:46 | disposition home or self-care (01) | LOC: HO.MAMMO 09:45 | PROVIDERS: PCP Internal Medicine; Visit Provider Internal Medicine | DX: Z12.31 Encounter for screening mammogram for malignant neoplasm of breast (principal) | CPT/HCPCS: 77063; 77067 ==

== ENCOUNTER → 2025-03-09 10:15 | Outpatient (BNV) | payer MEDICAID, SELFPAY | PROVIDERS: PCP Internal Medicine; Visit Provider Internal Medicine | DX: Z12.31 Encounter for screening mammogram for malignant neoplasm of breast (principal) | CPT/HCPCS: 77063; 77067 ==

== ENCOUNTER 2025-07-13 08:01 | Outpatient (REF) | payer MEDICAID, SELFPAY ==
--- OUTSIDE RECORDS SUMMARY | 2025-07-12 11:30 | XMS_ITS | Encounter Summary ---
Author Organization [employer] Address [address] [place] [address] Care Team Providers Care Biofuels Technology Development Manager Name Role Phone Francisca Perez MD Primary Care Provide r Encounter Details Date Type Department Care Team (Latest Contact Info) Description 07/12/2025 11:30 AM EST Office Visit [facility] [address] [place] [address] Francisca Perez MD [address] [place] [address] Pain in both thighs (Primary Dx); Essential hypertension; Left thigh pain; Gastroesophageal reflux disease without esophagitis; Acquired hypothyroidism Social History Tobacco Use Types Packs/Day Years Used Date Smoking Tobacco: Never Passive Smoke Exposure: Never Smokeless Tobacco: Never Alcohol Use Standard Drinks/Week Comments Never 0 (1 standard drink = 0.6 oz pur e alcohol) Depression Answer Date Recorded Patient Health Questionnaire-9 Score 0 07/12/2025 Patient Health Questionnaire-9 Score 0 07/12/2025 Last PHQ-9: Questionnaire Data Not on file 1 09/11/2024 Housing Stability Answer Date Recorded What is your housing situation today? I have myrnashana prajapati 07/05/[address] you li ve. Do you have problems with any of the following? None of the above 07/05/2025 Food Insecurity Answer Date Recorded Within the past 12 months, y ou worried that your food would run out before you got money to buy more: Never True 07/05/2025 Within the past 12 months,th e food you bought just didn't last and you didn't have enough money to get more: Never True Transportation Answer Date Recorded In the past 12 months, has l ack of transportation kept you from medical appts, meetings, work or from getting things needed for daily living? No 07/05/2025 Utilities Answer Date Recorded In the past 12 months, has t he electric, gas, oil or water company threatened to shut off services in your home? No 07/05/2025 Depression Answer Date Recorded Patient Health Questionnaire-2 Score 0 07/12/2025 Internet Access Answer Date Recorded Internet Access Q1 Yes 07/05/2025 Internet Access Q2 Not on file 07/05/2025 Comments No Sex and Gender Information Value Date Recorded Sex Assigned at Female 06/22/2022 10:16 AM EDT Legal Sex Female 10:16 AM EDT Gender Identity Female 06/22/2022 10:16 AM EDT Sexual Orientation Straight 06/22/2022 10 :16 AM EDT documented as of this encounter Last Filed Vital Signs Vital Sign Reading Time Taken Comments Blood Pressure 150/90 07/12/2025 11:36 AM EST pt did not take meds yest Pulse 97 07/12/2025 11:36 AM EST Temperature 36.1 C (97 F) 07/12/2025 11:36 AM EST Respiratory Rate 18 07/12/2025 11:3 6 AM EST Oxygen Saturation 95% 07/12/2025 11: 36 AM EST Inhaled Oxygen Concentration - - Weight 88.6 kg (195 lb 6.4 oz) 07/12/2025 11:36 AM EST Height 160 cm (5' 3 ) 07/12/2025 11:36 AM EST Body Mass Index 34.61 07/12/2025 11:36 AM EST documented in this encounter Functional Status * Over the past 2 weeks, how often have you been bothered by any of the following problems? Question Answer Date of Assessment Author Patient Health Questionnaire-2 Score 0 06/24 11:37 AM EST Rosie Almodovar MA * Little interest or pleasure in doing things Answer Date of Assessment Author Not at all 07/12/2025 11:37 AM EST Yara Almodovar MA * Feeling down, depressed, or hopeless Answer Date of Assessment Author Not at all 07/12/2025 11:37 AM EST Yara Almodovar MA * Trouble falling or staying asleep, or sleeping too much Answer Date of Assessment Author Not at all 07/12/2025 11:37 AM Yara Alberts MA * Feeling tired or having little energy Answer Date of Assessment Author Not at all 07/12/2025 11:37 AM Yara Alberts MA * Poor appetite or overeating Answer Date of Assessment Author Not at all 07/12/2025 11:37 AM Yara Alberts MA * Feeling bad about yourself - or that you are a failure or have let yourself or your family down Answer Date of Assessment Author Not at all 07/12/2025 11:37 AM Yara Alberts MA * Trouble concentrating on things, such as reading the newspaper or watching television Answer Date of Assessment Author Not at all 07/12/2025 11:37 AM Yara Alberts MA * Moving or speaking so slowly that other people could have noticed? Or the opposite - being so fidgety or restless that you have been moving around a lot more than usual. Answer Date of Assessment Author Not at all 07/12/2025 11:37 AM Yara Alberts MA * Thoughts that you would be better off or hurting yourself in some way Answer Date of Assessment Author Not at all 07/12/2025 11:37 AM Yara Alberts MA * Patient Health Questionnaire-9 Score Answer Date of Assessment Author 0 07/12/2025 11:37 AM Yara Alberts MA documented as of this encounter Progress Notes * Francisca Mckee MD - 07/12/2025 11:30 AM EST SUBJECTIVE: Shalini Abdul is a 65 y.o. year old female who presents for Chronic Disease Management . Shalini Abdul, age 65 Hypertension - History of elevated blood pressure - Previously prescribed a combination pill containing hydrochlorothiazide - Discontinued amlodipine after experiencing significant leg swelling during a trip to [place] in 2023 - Leg swelling resolved after stopping amlodipine - Currently taking losartan with hydrochlorothiazide - Reports episodes of high blood pressure, with readings up to 170/95 mmHg. - Reports facial discomfort and headache associated with elevated blood pressure - Medication for hypertension was discontinued, leading to uncontrolled blood pressure Muscle Pain - Reports pain in both thighs, sometimes situational - Pain described as muscular, with occasional radiation to the lower back - Previous emergency room visit for thigh pain; received topical diclofenac cream, which provided relief Headache - Reports frequent headaches, especially in the morning - Headaches associated with episodes of elevated blood pressure and facial discomfort Gastroesophageal Reflux/Acid Indigestion - Reports persistent acid reflux symptoms - Currently taking pantoprazole, but symptoms persist - Reports dietary indiscretion, including consumption of spicy, heavy, and late meals - Noted worsening of symptoms after eating late and heavy meals Thyroid Disorder - History of thyroid disorder - Levothyroxine was previously discontinued, but later resumed after discussion with provider [facility] - Reports allergy to shrimp Social History Social History Narrative Not on file Problem List[1] Shoulder pain Pharyngitis Obstructive sleep apnea syndrome Nausea and vomiting Mitral valve prolapse Increased frequency of urination Glaucoma Essential hypertension ASCUS of cervix with negative high risk HPV Anxiety Acquired hypothyroidism Gastroesophageal reflux disease without esophagitis Colon cancer screening Seasonal allergies Chronic periodontitis Periodontal disease Dental calculus Partial edentulism Normal oral exam Gingival bleeding Stage 3 grade B localized periodontitis per AAP/EFP 2017 classification Pain in both thighs Family History[2] Review of Systems Constitutional: Negative. HENT: Negative. Respiratory: Negative. Cardiovascular: Negative. Gastrointestinal: Positive for nausea and vomiting. Negative for abdominal distention and abdominalpain. GERD Musculoskeletal: Positive for myalgias. Neurological: Positive for headaches. OBJECTIVE: Vitals: 07/12/25 1136 BP: (!) 150/90 BP Location: Left arm Patient Position: Sitting BP Cuff Size: Adult Pulse: 97 Resp: 18 Temp: 97 ??F (36.1 ??C) TempSrc: Oral SpO2: 95% Weight: 195 lb 6.4 oz (88.6 kg) Height: 5' 3 (1.6 m) Physical Exam Constitutional: Appearance: Normal appearance. Cardiovascular: Rate and Rhythm: Normal rate and regular rhythm. Pulmonary: Effort: Pulmonary effort is normal. Breath sounds: Normal breath sounds. Abdominal: General: Abdomen is flat. Palpations: Abdomen is soft. Musculoskeletal: Right lower leg: No edema. Left lower leg: No edema. Neurological: Mental Status: She is alert. Follow Up: No follow-ups on file. Medications Ordered Prior to Encounter[3] Problem List Items Addressed This Visit Essential hypertension Relevant Medications carvedilol (Coreg) 6.25 MG tablet Other Relevant Orders CBC auto differential Comprehensive Metabolic Panel Hemoglobin A1c HIV-1/2 Antigen and Antibodies, Fourth Generation, with Reflexes Hepatitis C Antibody with Reflex to HCV, RNA, Quantitative, Real-Time PCR Lipid Panel, Standard Vitamin D, 25-Hydroxy, Total, Immunoassay TSH with Reflex to Free T4 Pain in both thighs - Primary Relevant Medications Diclofenac Sodium 1 % gel acetaminophen (Tylenol Extra Strength) 500 MG tablet cyclobenzaprine (Flexeril) 5 MG tablet Gastroesophageal reflux disease without esophagitis Relevant Medications carvedilol (Coreg) 6.25 MG tablet pantoprazole (ProtoNix) 20 MG EC tablet Acquired hypothyroidism Relevant Medications carvedilol (Coreg) 6.25 MG tablet Other Relevant Orders Vitamin D, 25-Hydroxy, Total, Immunoassay TSH with Reflex to Free T4 Other Visit Diagnoses Left thigh pain Relevant Medications Diclofenac Sodium 1 % gel acetaminophen (Tylenol Extra Strength) 500 MG tablet Essential hypertension: - Hypertension is poorly controlled, likely due to discontinuation of amlodipine. - Prescribed carvedilol 6.25 mg twice daily. Monitor blood pressure and report any changes. Follow-up scheduled for 4-6 weeks televisit Pain in both thighs: - Pain in thighs appears to be muscular in nature. - Prescribed acetaminophen and muscle relaxant. Recommended topical gel for application on thighs. - Risks and side effects: Muscle relaxant may cause drowsiness; advised to take at night and avoid driving. Gastroesophageal reflux disease without esophagitis: - Reflux symptoms exacerbated by dietary habits. - Increased pantoprazole dosage to 20 mg twice daily. Advised dietary modifications to avoid spicy,heavy, and acidic foods. Recommended elevating head of bed during sleep. Acquired hypothyroidism: - Ordered laboratory tests to assess thyroid function. Prescribed levothyroxine 25 mcg. This note was drafted using [employer]) technology. The patient/patient's guardian has been informed and has consented to the use of this technology: Yes [1] Patient Active Problem List Diagnosis Shoulder pain Pharyngitis Obstructive sleep apnea syndrome Nausea and vomiting Mitral valve prolapse Increased frequency of urination Glaucoma Essential hypertension ASCUS of cervix with negative high risk HPV Anxiety Acquired hypothyroidism Gastroesophageal reflux disease without esophagitis Colon cancer screening Seasonal allergies Chronic periodontitis Periodontal disease Dental calculus Partial edentulism Normal oral exam Gingival bleeding Stage 3 grade B localized periodontitis per AAP/EFP 2017 classification Pain in both thighs [2] No family history on file. [3] Current Outpatient Medications on File Prior to Visit Medication Sig Dispense Refill Anti-Diarrheal 2 MG tablet TAKE 1 TABLET BY MOUTH FOUR TIMES DAILY NEEDED FOR DIARRHEA 100 tablet 2 Betimol 0.5 % ophthalmic solution INSERT 1 DROP AFFECTED EYE(S) TWICE DAILY DIRECTED 5 mL 0 bimatoprost (Lumigan) 0.01 % ophthalmic solution apply in each eye at bed time Strength: 0.01 % 5 mL 5 chlorhexidine (Peridex) 0.12 % solution Use 15ml to rinse your mouth twice daily. Spit, do not swallow. 473 mL 0 levothyroxine (Synthroid, Levoxyl) 25 MCG tablet Take 1 tablet (25 mcg) by mouth in the morning. 90tablet 0 loratadine (Claritin) 10 MG tablet TAKE 1 TABLET BY MOUTH EVERY MORNING 90 tablet 0 losartan-hydroCHLOROthiazide (Hyzaar) 100-25 MG tablet TAKE 1 TABLET BY MOUTH EVERY DAY IN THE MORNING 90 tablet 0 sodium chloride ([place]) 0.65 % nasal spray 1-2 sprays on each nostril every 2-3 hours as needed for nasal congestion 30 mL 1 traZODone (Desyrel) 50 MG tablet TAKE 1 TABLET BY MOUTH DAILY AT BEDTIME NEEDED FOR SLEEP MAY TAKE 1 ADDITIONAL TABLET NEEDED FOR ANXIETY 45 tablet 5 Ventolin HFA 108 (90 Base) MCG/ACT inhaler INHALE 2 PUFFS BY MOUTH EVERY 4 TO 6 HOURS NEEDED 18 g 2 [DISCONTINUED] amLODIPine (Norvasc) 10 MG tablet TAKE 1 TABLET BY MOUTH EVERY DAY 90 tablet 0 [DISCONTINUED] Diclofenac Sodium 1 % gel APPLY 2 GRAMS TOPICALLY TO AFFECTED AREA(S) 4 TIMES A DAY IN THE MORNING, AT NOON, IN THE EVENING, AND AT BEDTIME NEEDED FOR PAIN 100 g 0 [DISCONTINUED] pantoprazole (ProtoNix) 20 MG EC tablet TAKE 1 TABLET BY MOUTH EVERY DAY DO NOT BREAK, CRUSH, DISSOLVE OR CHEW 90 tablet 0 [DISCONTINUED] pantoprazole (ProtoNix) 20 MG EC tablet Take 1 tablet (20 mg) by mouth before breakfast. Do not crush, chew, or split.TAKE 1 TABLET BY MOUTH EVERY DAY DO NOT BREAK, CRUSH, DISSOLVE OR CHEW 90 tablet 1 No current facility-administered medications on file prior to visit. documented in this encounter Plan of Treatment Upcoming Encounters Date Type Department Care Team (Late st Contact Info) Description 09/11/2025 10:45 AM EST Telemedicine [facility] [address] [place] [address] Francisca Perez MD [address] [place], [place] [phone] 09/25/2025 9:30 AM EST Office Visit [facility] [address] [place], [place] [phone] Mili, Britney [address] [place], [place] [phone] Scheduled Orders Name Type Priority Associated Diagnoses Orde r Schedule CBC auto differential Lab Routine Essential hypertension Expected: 07/12/2025 (Approximate), Expires: 07/12/2026 Comprehensive Metabolic Panel Lab Routine Essential hypertension Expected: 07/12/2025 (Approximate), Expires: 07/12/2026 Hemoglobin A1c Lab Routine Essential hypertension Expected: 07/12/2025 (Approximate), Expires: 07/12/2026 HIV-1/2 Antigen and Antibodies, Fourth Generation, with Reflexes Lab Routine Essential hypertension Expected: 07/12/2025 (Approximate), Expires: 07/12/2026 Hepatitis C Antibody with Reflex to HCV, RNA, Quantitative, Real-Time PCR Lab Routine Essential hypertension Expected: 07/12/2025, Expires: 07/12/2026 Lipid Panel, Standard Lab Routine Essential hypertension Expected: 07/12/2025 (Approximate), Expires: 07/12/2026 Vitamin D, 25-Hydroxy, Total, Immunoassay Lab Routine Essential hypertension Acquired hypothyroidism Expected: 07/12/2025 (Approximate), Expires: 07/12/2026 TSH with Reflex to Free T4 Lab Routine Essential hypertension Acquired hypothyroidism Expected: 07/12/2025 (Approximate), Expires: 07/12/2026 documented as of this encounter Visit Diagnoses Diagnosis Pain in both thighs- Primary Essential hypertension Unspecified essential hypertension Left thigh pain Pain in soft tissues of limb Gastroesophageal reflux disease without esophagitis Esophageal reflux Acquired hypothyroidism Unspecified hypothyroidism documented in this encounter Additional Health Concerns Assessment Noted Time PHQ-9 Depression Total Score: 0 07/12/20 25 11:37 AM EST documented as of this encounter Care Teams Biofuels Technology Development Manager Relationship Specialty Start Date End Date Francisca Perez MD [address] [place] [address] PCP - General Family Medicine 04/26/19 documented as of this encounter
--- OUTSIDE RECORDS SUMMARY | 2025-07-13 08:05 | XMS_ITS | Encounter Summary ---
Author Organization [employer] Address [address] [place] [address] Care Team Providers Care Customer Greeter Name Role Phone Francisca Perez MD Primary Care Provide r Reason for Visit * Reason Comments Med Refill Encounter Details Date Type Department Care Team ([facility] Contact Info) Description 03/16/2025 Refill [facility] [address] [place] [phone] Francisca Perez MD [address] [place], [place] [phone] Left thigh pain Social History Tobacco Use Types Packs/Day Years Used Date Smoking Tobacco: Never Passive Smoke Exposure: Never Smokeless Tobacco: Never Alcohol Use Standard Drinks/Week Comments Never 0 (1 standard drink = 0.6 oz pur e alcohol) Depression Answer Date Recorded Patient Health Questionnaire-9 Score 0 12/30/2022 Housing Stability Answer Date Recorded What is your housing situation today? I have myrna prajapati 08/03/[address] you li ve. Do you have problems with any of the following? None of the above 08/03/2023 Food Insecurity Answer Date Recorded Within the past 12 months, y ou worried that your food would run out before you got money to buy more: Never True 08/03/2023 Within the past 12 months,th e food you bought just didn't last and you didn't have enough money to get more: Never True 07/2023 Transportation Answer Date Recorded In the past 12 months, has l ack of transportation kept you from medical appts, meetings, work or from getting things needed for daily living? No 08/03/2023 Utilities Answer Date Recorded In the past 12 months, has t he electric, gas, oil or water company threatened to shut off services in your home? No 08/03/2023 Depression Answer Date Recorded Patient Health Questionnaire-2 Score 0 12/30/2022 Comments No Sex and Gender Information Value Date Recorded Sex Assigned at Female 06/22/2022 10:16 AM EDT Legal Sex Female 10:16 AM EDT Gender Identity Female 06/22/2022 10:16 AM EDT Sexual Orientation Straight 06/22/2022 10 :16 AM EDT documented as of this encounter Plan of Treatment Upcoming Encounters Date Type Department Care Team (Late st Contact Info) Description 09/11/2025 10:45 AM EST Telemedicine [facility] [address] [place] [address] Francisca Perez MD [address] [place] [address] 09/25/2025 9:30 AM EST Office Visit [facility] [address] [place] [address] Mili, Britney [address] [place] [address] documented as of this encounter Visit Diagnoses Diagnosis Left thigh pain Pain in soft tissues of limb documented in this encounter Additional Health Concerns Assessment Noted Time PHQ-9 Depression Total Score: 0 12/31/19 23 9:03 AM EDT documented as of this encounter Care Teams Customer Greeter Relationship Specialty Start Date End Date Francisca Perez MD [address] [place] [address] PCP - General Family Medicine 04/26/19 documented as of this encounter
--- OUTSIDE RECORDS SUMMARY | 2025-07-13 08:05 | XMS_ITS | Encounter Summary ---
Author Organization [employer] Address [address] [facility] 7t [place] [address] Care Team Providers Care Sales And Support Center Agent Name Role Phone Francisca Perez MD Primary Care Provide r Reason for Visit * Reason Onset Date Comments medication 04/15/2023 Encounter Details Date Type Department Care Team ([facility] Contact Info) Description 04/15/2023 Telephone [facility] [address] [place] [address] Evangelina Edmonds DDS [address] [place] [address] medication Social History Tobacco Use Types Packs/Day Years Used Date Smoking Tobacco: Never Passive Smoke Exposure: Never Smokeless Tobacco: Never Depression Answer Date Recorded Patient Health Questionnaire-9 Score 0 12/30/2022 Depression Answer Date Recorded Patient Health Questionnaire-2 Score 0 12/30/2022 Comments Unknown Sex and Gender Information Value Date Recorded Sex Assigned at Female 06/22/2022 10:16 AM EDT Legal Sex Female 10:16 AM EDT Gender Identity Female 06/22/2022 10:16 AM EDT Sexual Orientation Straight 06/22/2022 10 :16 AM EDT documented as of this encounter Miscellaneous Notes * Telephone Encounter - Evangelina Edmonds DDS - 04/15/2023 1:05 PM EDT Please inform the pt that the medication has been sent. Thanks, Dr. Valdez * Telephone Encounter - Bisi Macias 04/15/2023 12:41 PM EDT Patient was down in pharmacy for about 40 minutes and medication wasn't sent. She went home. Would like to pecan picker script soon. Can it be sent please DR documented in this encounter Plan of Treatment Upcoming Encounters Date Type Department Care Team (Late st Contact Info) Description 09/11/2025 10:45 AM EST Telemedicine [facility] [address] [place] [address] Francisca Perez MD [address] [place] [address] 09/25/2025 9:30 AM EST Office Visit [facility] [address] [place] [address] Britney Garces [address] [place] [address] documented as of this encounter Visit Diagnoses Not on filedocumented in this encounter Additional Health Concerns Assessment Noted Time PHQ-9 Depression Total Score: 0 12/31/19 9:03 AM EDT documented as of this encounter Care Teams Sales And Support Center Agent Relationship Specialty Start Date End Date Francisca Perez MD [address] [place] [phone] PCP - General Family Medicine 04/26/19 documented as of this encounter
--- OUTSIDE RECORDS SUMMARY | 2025-07-13 08:05 | XMS_ITS | Encounter Summary ---
Author Organization [employer] Address [address] [facility] [address] [place] [address] Care Team Providers Care Rate Setter Name Role Phone Francisca Perez MD Primary Care Provide r Reason for Visit * Reason Comments Med Refill Encounter Details Date Type Department Care Team ([facility] Contact Info) Description 09/28/2024 Refill [facility] [address] [place], [place] [phone] Francisca Perez MD [address] [place] [address] Asthma, unspecified asthma severity, unspecified whether complicated, unspecified whether persistent Social History Tobacco Use Types Packs/Day Years [...] Info) Description 09/11/2025 10:45 AM EST Telemedicine [facility] [address] [place] [address] Francisca Perez MD [address] [place] [phone] 09/25/2025 9:30 AM EST Office Visit [facility] ADULT D[facility] [address] [place] [address] Mili, Britney [address] [place] [address] documented as of this encounter Visit Diagnoses Diagnosis Asthma, unspecified asthma severity, unspecified whether complicated, unspecified whether persistent documented in this encounter Additional Health Concerns Assessment Noted Time PHQ-9 Depression Total Score: 0 12/31/19 23 9:03 AM EDT documented as of this encounter Care Teams Rate Setter Relationship Specialty Start Date End Date Francisca Perez MD [address] [place] [phone] PCP - General Family Medicine 04/26/19 documented as of this encounter
--- OUTSIDE RECORDS SUMMARY | 2025-07-13 08:05 | XMS_ITS | Encounter Summary ---
Author Organization [employer] Address [address] [facility] 7t [place] [address] Care Team Providers Care Residential Fee Appraiser Name Role Phone Francisca Perez MD Primary Care Provide r Reason for Visit * Reason Comments Med Refill Encounter Details Date Type Department Care Team (Late Contact Info) Description 03/06/2023 Refill [facility] [address] [place] [phone] Francisca Perez MD [address] [place] [phone] Asthma, unspecified asthma severity, unspecified whether complicated, [...] Encounters Date Type Department Care Team (Late Contact Info) Description 09/11/2025 10:45 AM EST Telemedicine [facility] [address] [place] [phone] Francisca Perez MD [address] [place], [place] [phone] 09/25/2025 9:30 AM EST Office Visit [facility] AD[facility] [address] [place] [address] Britney Garces [address] [place] [address] documented as of this encounter Visit Diagnoses Diagnosis Asthma, unspecified asthma severity, unspecified whether complicated, unspecified whether persistent documented in this encounter Additional Health Concerns Assessment Noted Time PHQ-9 Depression Total Score: 0 12/31/19 23 9:03 AM EDT documented as of this encounter Care Teams Residential Fee Appraiser Relationship Specialty Start Date End Date Francisca Perez MD [address] [place] [address] PCP - General Family Medicine 04/26/19 documented as of this encounter
--- OUTSIDE RECORDS SUMMARY | 2025-07-13 08:05 | XMS_ITS | Encounter Summary ---
Author Organization [email or web address] Address [address] [facility] 7t [place] [address] Care Team Providers Care Carbon Grinder Name Role Phone Francisca Perez MD Primary Care Provide r Reason for Visit * Reason Comments Med Refill Encounter Details Date Type Department Care Team ([facility] Contact Info) Description 07/19/2023 Refill [facility] [address] [place], [place] [phone] Jose F Sandoval FNP Sore throat; Viral syndrome; Cold sore Social History Tobacco Use Types Packs/Day Years Used Date Smoking Tobacco: Never Passive Smoke Exposure: Never Smokeless Tobacco: Never Alcohol Use Standard Drinks/Week Comments Defer 0 (1 standard drink = 0.6 oz [...] Upcoming Encounters Date Type Department Care Team ([facility] Contact Info) Description 09/11/2025 10:45 AM EST Telemedicine [facility] [address] [place] [address] [phone] Francisca Perez MD [address] [place] [address] 09/25/2025 9:30 AM EST Office Visit [facility] ADULT DENTAL [address] [place] [address] Britney Garces [address] [place] [address] documented as of this encounter Visit Diagnoses Diagnosis Sore throat Acute pharyngitis Viral syndrome Unspecified viral infection, in conditions classified elsewhere and of unspecified site Cold sore Herpes simplex without mention of complication documented in this encounter Additional Health Concerns Assessment Noted Time PHQ-9 Depression Total Score: 0 12/31/19 23 9:03 AM EDT documented as of this encounter Care Teams Carbon Grinder Relationship Specialty Start Date End Date Francisca Perez MD [address] [place] [address] PCP - General Family Medicine 04/26/19 documented as of this encounter
--- OUTSIDE RECORDS SUMMARY | 2025-07-13 08:05 | XMS_ITS | Encounter Summary ---
Author Organization [employer] Address [address] [facility] 7t [place] [address] Care Team Providers Care Filling Layer Up Name Role Phone Francisca Perez MD Primary Care Provide r Reason for Visit * Reason Onset Date Comments chart prep 07/12/2025 Encounter Details Date Type Department Care Team ([facility] Contact Info) Description 07/12/2025 Telephone [facility] [address] [place] [address] Francisca Perez MD [address] [place] [address] chart prep Social History Tobacco Use Types Packs/Day Years [...] encounter Miscellaneous Notes * Telephone Encounter - Teresa Hogue MA - 07/12/2025 10:04 AM EST Chart Prep Labs: not applicable Images: done Referrals: complete Vaccines due: Covid, Flu, PCV20, Hep B, RSV, and Zoster Screenings: colonoscopy Overdue care gaps: SBIRT, PHQ-9, DARSHAN-7, and Disability screen documented in this encounter Plan of Treatment Upcoming Encounters Date Type Department Care Team (Late st Contact Info) Description 09/11/2025 10:45 AM EST Telemedicine [facility] [address] [place] [phone] Francisca Perez MD [address] [place] [address] 09/25/2025 9:30 AM EST Office Visit [facility] ADULT DENTAL [address] [place] [address] Britney Garces [address] [place] [address] documented as of this encounter Visit Diagnoses Not on filedocumented in this encounter Additional Health Concerns Assessment Noted Time PHQ-9 Depression Total Score: 0 07/12/20 25 11:37 AM EST documented as of this encounter Care Teams Filling Layer Up Relationship Specialty Start Date End Date Francisca Perez MD [address] [place] [address] PCP - General Family Medicine 04/26/19 documented as of this encounter
--- OUTSIDE RECORDS SUMMARY | 2025-07-13 08:05 | XMS_ITS | Encounter Summary ---
Author Organization [employer] Address [address] [facility] [address] 7t [place] [address] Care Team Providers Care Pickle Maker Name Role Phone Francisca Perez MD Primary Care Provide r Reason for Visit * Reason Comments Med Refill Encounter Details Date Type Department Care Team ([facility] Contact Info) Description 03/25/2024 Refill [facility] MED & PEDS [address] [place], [place] [phone] Francisca Perez MD [address] [place] [address] Primary insomnia Social History Tobacco Use Types Packs/Day Years [...] Info) Description 09/11/2025 10:45 AM EST Telemedicine [facility] MEDICINE [address] [place] [address] Francisca Perez MD [address] [place] [address] 09/25/2025 9:30 AM EST Office Visit [facility] ADULT DENTAL [address] [place] [address] Mili, Britney [address] [place] [address] documented as of this encounter Visit Diagnoses Diagnosis Primary insomnia Persistent disorder of initiating or maintaining sleep documented in this encounter Additional Health Concerns Assessment Noted Time PHQ-9 Depression Total Score: 0 12/31/19 23 9:03 AM EDT documented as of this encounter Care Teams Pickle Maker Relationship Specialty Start Date End Date Francisca Perez MD [address] [place] [address] PCP - General Family Medicine 04/26/19 documented as of this encounter
--- OUTSIDE RECORDS SUMMARY | 2025-07-13 08:05 | XMS_ITS | Encounter Summary ---
Author Organization [employer] Address [address] [facility] [address] 7[address] [place] [address] Care Team Providers Care Lawn Service Manager Name Role Phone Francisac Perez MD Primary Care Provide r Reason for Visit * Reason Onset Date Comments Med Refill 07/09/2025 Encounter Details Date Type Department Care Team ([facility] Contact Info) Description 07/09/2025 Refill [facility] & PEDS [address] [place], [place] [phone] Francisca Perez MD [address] [place] [address] Gastroesophageal reflux disease without esophagitis Social History Tobacco Use Types Packs/Day Years Used Date Smoking Tobacco: Never Passive Smoke Exposure: Never Smokeless Tobacco: Never Alcohol Use Standard Drinks/Week Comments Never 0 (1 standard drink = 0.6 oz pur e alcohol) Depression Answer Date Recorded Patient Health Questionnaire-9 Score 0 12/30/2022 Housing Stability Answer Date Recorded What is your housing situation today? I have myrna prajapati 07/05/[address] you [...] Recorded Patient Health Questionnaire-2 Score 0 12/30/2022 Internet Access Answer Date Recorded Internet Access [...] encounter Miscellaneous Notes * Telephone Encounter - Remedios Fermin LPN - 07/09/2025 12:23 PM EST Last seen 5 documented in this encounter Plan of Treatment Upcoming Encounters Date Type Department Care Team (Late st Contact Info) Description 09/11/2025 10:45 AM EST Telemedicine [facility] MEDICINE [address] [place] [phone] Francisca Perez MD [address] [place] [phone] 09/25/2025 9:30 AM EST Office Visit [facility] ADULT DENTAL [address] [place] [address] Britney Garces [address] [place] [address] documented as of this encounter Visit Diagnoses Diagnosis Gastroesophageal reflux disease without esophagitis Esophageal reflux documented in this encounter Additional Health Concerns Assessment Noted Time PHQ-9 Depression Total Score: 0 12/31/19 9:03 AM EDT documented as of this encounter Care Teams Lawn Service Manager Relationship Specialty Start Date End Date Francisca Perez MD [address] [place] [address] PCP - General Family Medicine 04/26/19 documented as of this encounter
--- OUTSIDE RECORDS SUMMARY | 2025-07-13 08:05 | XMS_ITS | Encounter Summary ---
Author Organization [employer] Address [address] [facility] 7t [place] [address] Care Team Providers Care Scientist Propagator Name Role Phone Francisca Perez MD Primary Care Provide r Encounter Details Date Type Department Care Team (Latest Contact Info) Description 05/17/2019 Abstract [facility] CONVERSIONS Dental, Provider, DDS Social History Tobacco Use Types Packs/Day Years Used Date Smoking Tobacco: Never Assessed Comments Unknown Sex and Gender Information Value Date Recorded Sex Assigned at Female 06/22/2022 10:16 AM EDT Legal Sex Female 10:16 AM EDT Gender Identity Female 06/22/2022 10:16 AM EDT Sexual Orientation Straight 06/22/2022 10 :16 AM EDT documented as of this encounter Plan of Treatment Upcoming Encounters Date Type Department Care Team ( Contact Info) Description 09/11/2025 10:45 AM EST Telemedicine [facility] MEDICINE [address] [place] [address] Francisca Perez MD [address] [place] [address] 09/25/2025 9:30 AM EST Office Visit [facility] ADULT DENTAL [address] [place] [address] Britney Garces [address] [place] [address] documented as of this encounter Visit Diagnoses Not on filedocumented in this encounter Care Teams Scientist Propagator Relationship Specialty Start Date End Date Francisca Perez MD [address] [place] [phone] PCP - General Family Medicine 04/26/19 documented as of this encounter
--- OUTSIDE RECORDS SUMMARY | 2025-07-13 08:05 | XMS_ITS | Encounter Summary ---
Author Organization [employer] Address [address] [facility] 7t [place] [address] Care Team Providers Care Machine Operator Replanter Name Role Phone Francisca Perez MD Primary Care Provide r Encounter Details Date Type Department Care Team (Late Contact Info) Description 06/25/2023 Abstract [facility] ADULT DENTAL [address] [place] [address] Britney Garces [address] [place] [address] Social History Tobacco Use Types Packs/Day Years [...] Info) Description 09/11/2025 10:45 AM EST Telemedicine [facility] MEDICINE [address] [place] [address] Francisca Perez MD [address] [place] [address] 09/25/2025 9:30 AM EST Office Visit [facility]ULT [facility] [address] [place] [address] Britney Garces [address] [place], [place] [phone] documented as of this encounter Visit Diagnoses Not on filedocumented in this encounter Additional Health Concerns Assessment Noted Time PHQ-9 Depression Total Score: 0 12/31/19 23 9:03 AM EDT documented as of this encounter Care Teams Machine Operator Replanter Relationship Specialty Start Date End Date Francisca Perez MD [address] [place] [address] PCP - General Family Medicine 04/26/19 documented as of this encounter
--- OUTSIDE RECORDS SUMMARY | 2025-07-13 08:05 | XMS_ITS | Encounter Summary ---
Author Organization [employer] Address [address] [facility] 7t [place] [address] Care Team Providers Care Ethylbenzene Cracking Supervisor Name Role Phone Francisca Perez MD Primary Care Provide r Reason for Visit * Reason Onset Date Comments Medication Question 07/12/2025 Encounter Details Date Type Department Care Team ([facility] Contact Info) Description 07/12/2025 Telephone [facility] MEDICINE [address] [place] [address] Francisca Perez MD [address] [place] [address] Medication Question Social History Tobacco Use Types Packs/Day Years [...] AM EDT documented as of this encounter Functional Status * Over the past 2 weeks, how often have you been bothered by any of the following problems? Question Answer Date of Assessment Author Patient Health Questionnaire-2 Score 0 06/24 11:37 AM Rosie Alberts [place] * Little interest or pleasure in doing things Answer Date of Assessment Author Not at all 07/12/2025 11:37 AM Yara Alberts MA * Feeling down, depressed, or hopeless Answer Date of Assessment Author Not at all 07/12/2025 11:37 AM Yara Alberts MA * Trouble falling or staying asleep, [...] Alberts MA documented as of this encounter Miscellaneous Notes * Telephone Encounter - Triny Lozano RN - 07/12/2025 2:16 PM EST Noted. * Telephone Encounter - Triny Lozano RN - 07/12/2025 1:09 PM EST Incoming call from the pharmacy in regards to pantoprazole. Pharmacy reports prescription from today has conflicting directions of Take 1 tablet (20 mg) by mouth 2 times daily. Do not crush, chew, or split.TAKE 1 TABLET BY MOUTH EVERY DAY DO NOT BREAK, CRUSH, DISSOLVE OR CHEW . Please review prescription and send new prescription with updated directions and correct qty. Thank you! documented in this encounter Plan of Treatment Upcoming Encounters Date Type Department Care Team (Late st Contact Info) Description 09/11/2025 10:45 AM EST Telemedicine [facility] MEDICINE [address] [place] [address] Francisca Perez MD [address] [place] [address] 09/25/2025 9:30 AM EST Office Visit [facility] ADULT DENTAL [address] [place] [address] Britney Garces [address] [place] [address] documented as of this encounter Visit Diagnoses Not on filedocumented in this encounter Additional Health Concerns Assessment Noted Time PHQ-9 Depression Total Score: 0 07/12/20 25 11:37 AM EST documented as of this encounter Care Teams Ethylbenzene Cracking Supervisor Relationship Specialty Start Date End Date Francisca Perez MD [address] [place] [address] PCP - General Family Medicine 04/26/19 documented as of this encounter
--- OUTSIDE RECORDS SUMMARY | 2025-07-13 08:05 | XMS_ITS | Encounter Summary ---
Author Organization [employer] Address [address] [facility] 7t [place] [address] Care Team Providers Care Child Adolescent Psychiatrist Name Role Phone Francisca Perez MD Primary Care Provide r Encounter Details Date Type Department Care Team (Late st Contact Info) Description 11/12/2022 Orders Only [facility] MEDICINE [address] [place] [phone] Francisca Perez MD [address] [place], [place] [phone] Social History Tobacco Use Types Packs/Day Years [...] Info) Description 09/11/2025 10:45 AM EST Telemedicine [facility] MEDICINE [address] [place] [address] Francisca Perez MD [address] [place], [place] [phone] 09/25/2025 9:30 AM EST Office Visit [facility] ADULT DENTAL [address] [place] [phone] Britney Garces [address] [place] [address] documented as of this encounter Visit Diagnoses Not on filedocumented in this encounter Care Teams Child Adolescent Psychiatrist Relationship Specialty Start Date End Date Francisca Perez MD [address] [place] [address] PCP - General Family Medicine 04/26/19 documented as of this encounter
--- OUTSIDE RECORDS SUMMARY | 2025-07-13 08:05 | XMS_ITS | Encounter Summary ---
Author Organization [employer] Address [address] [facility] [address] 7t [place] [address] Care Team Providers Care Mortgage Coordinator Name Role Phone Francisca Perez MD Primary Care Provide r Reason for Visit * Reason Comments Med Refill Encounter Details Date Type Department Care Team ([facility] Contact Info) Description 12/06/2024 Refill [facility] CH[facility] MED & PEDS [address] [place], [place] [phone] Francisca Perez MD [address] [place] [address] Primary insomnia Social History Tobacco Use Types [...] Info) Description 09/11/2025 10:45 AM EST Telemedicine [facility] MEDICINE [address] [place] [address] Francisca Perez MD [address] [place] [address] 09/25/2025 9:30 AM EST Office Visit [facility] ADULT DENTAL [address] [place] [address] Mili, Britney [address] [place] [address] documented as of this encounter Visit Diagnoses Diagnosis Primary insomnia Persistent disorder of initiating or maintaining sleep documented in this encounter Additional Health Concerns Assessment Noted Time PHQ-9 Depression Total Score: 0 12/31/19 23 9:03 AM EDT documented as of this encounter Care Teams Mortgage Coordinator Relationship Specialty Start Date End Date Francisca Perez MD [address] [place] [address] PCP - General Family Medicine 04/26/19 documented as of this encounter
--- OUTSIDE RECORDS SUMMARY | 2025-07-13 08:05 | XMS_ITS | Clinical Summary ---
Author Organization [employer] Address [address] [facility] [address] [place] [address] Care Team Providers Care Deck Supervisor Name Role Phone Francisca Perez MD Primary Care Provide r Allergies Active Allergy Reactions Criticality Noted Date Comments Shrimp Extract 08/31/2017 Medications bimatoprost (Lumigan) 0.01 % ophthalmic solutionIndicat ions:Glaucoma, unspecified glaucoma type, unspecified laterality apply in each eye at bed time Strength: 0.01 % 5 mL 5 09/14/19 23 Active sodium chloride ([place] Nasal [place]) 0.65 % nasal sprayIndication s:Viral syndrome 1-2 sprays on each nostril every 2-3 hours as needed for nasal congestion 30 mL 1 11/26/19 23 Active loratadine (Claritin) 10 MG tabletIndicatio ns:Seasonal allergies TAKE 1 TABLET BY MOUTH EVERY MORNING 90 tablet 07/19/20 23 Active Betimol 0.5 % ophthalmic solution INSERT 1 DROP AFFECTED EYE(S) TWICE DAILY DIRECTED 5 mL 08/31/19 24 Active traZODone (Desyrel) 50 MG tabletIndicatio ns:Primary insomnia TAKE 1 TABLET BY MOUTH DAILY AT BEDTIME NEEDED FOR SLEEP MAY TAKE 1 ADDITIONAL TABLET NEEDED FOR ANXIETY 45 tablet 5 04/14/20 24 Active Ventolin HFA 108 (90 Base) MCG/ACT inhalerIndicati ons:Asthma, unspecified asthma severity, unspecified whether complicated, unspecified whether persistent INHALE 2 PUFFS BY MOUTH EVERY 4 TO 6 HOURS NEEDED 18 g 2 05/11/20 24 Active Anti-Diarrheal 2 MG tabletIndicatio ns:Diarrhea, unspecified type TAKE 1 TABLET BY MOUTH FOUR TIMES DAILY NEEDED FOR DIARRHEA 100 tablet 2 02/06/20 25 Active losartan-hydroC HLOROthiazide (Hyzaar) 100-25 MG tabletIndicatio ns:Essential hypertension TAKE 1 TABLET BY MOUTH EVERY DAY IN THE MORNING 90 tablet 03/15/20 25 Active chlorhexidine (Peridex) 0.12 % solution Use 15ml to rinse your mouth twice daily. Spit, do not swallow. 473 mL 03/16/20 25 Active levothyroxine (Synthroid, Levoxyl) 25 MCG tabletIndicatio ns:Hypothyroidi sm, unspecified type Take 1 tablet (25 mcg) by mouth in the morning. 90 tablet 05/25/20 25 Active carvedilol (Coreg) 6.25 MG tabletIndicatio ns:Essential hypertension Take 1 tablet (6.25 mg) by mouth with breakfast and with evening meal. 60 tablet 11 07/12/20 25 2025 Active Diclofenac Sodium 1 % gelIndications: Pain in both thighs Apply 1 Application topically every 12 (twelve) hours if needed (apply on affected area if needed). 100 g 07/12/20 25 Active acetaminophen (Tylenol Extra Strength) 500 MG tabletIndicatio ns:Pain in both thighs Take 2 tablets (1,000 mg) by mouth every 8 (eight) hours if needed for moderate pain for up to 10 days. 40 tablet 1 07/12/20 25 2024 Active cyclobenzaprine (Flexeril) 5 MG tabletIndicatio ns:Pain in both thighs Take 1 tablet (5 mg) by mouth 3 times daily for 10 days. 30 tablet 07/12/20 25 2024 Active pantoprazole (ProtoNix) 20 MG EC tabletIndicatio ns:Gastroesopha geal reflux disease without esophagitis Take 1 tablet (20 mg) by mouth 2 times daily. 180 tablet 07/12/20 25 Active amLODIPine (Norvasc) 10 MG tabletIndicatio ns:Hypertension , unspecified type TAKE 1 TABLET BY MOUTH EVERY DAY 90 tablet 03/15/20 25 2024 Discontinued Diclofenac Sodium 1 % gelIndications: Left thigh pain APPLY 2 GRAMS TOPICALLY TO AFFECTED AREA(S) 4 TIMES A DAY IN THE MORNING, AT NOON, IN THE EVENING, AND AT BEDTIME NEEDED FOR PAIN 100 g 03/20/20 25 2024 Discontinued(R eorder (will not trigger notification to Pharmacy)) pantoprazole (ProtoNix) 20 MG EC tabletIndicatio ns:Gastroesopha geal reflux disease without esophagitis TAKE 1 TABLET BY MOUTH EVERY DAY DO NOT BREAK, CRUSH, DISSOLVE OR CHEW 90 tablet 04/11/20 25 2024 Discontinued(R eorder (will not trigger notification to Pharmacy)) pantoprazole (ProtoNix) 20 MG EC tabletIndicatio ns:Gastroesopha geal reflux disease without esophagitis Take 1 tablet (20 mg) by mouth before breakfast. Do not crush, chew, or split.TAKE 1 TABLET BY MOUTH EVERY DAY DO NOT BREAK, CRUSH, DISSOLVE OR CHEW 90 tablet 1 07/09/20 25 2024 Discontinued pantoprazole (ProtoNix) 20 MG EC tabletIndicatio ns:Gastroesopha geal reflux disease without esophagitis Take 1 tablet (20 mg) by mouth 2 times daily. Do not crush, chew, or split.TAKE 1 TABLET BY MOUTH EVERY DAY DO NOT BREAK, CRUSH, DISSOLVE OR CHEW 180 tablet 07/12/202024 Discontinued Active Problems Problem Noted Date Diagnosed Date Pain in both thighs 07/12/2025 Gingival bleeding 05/08/2025 Stage 3 grade B localized pe riodontitis per AAP/EFP 2017 classification 05/08/2025 Normal oral exam 08/21/2024 Periodontal disease 06/08/2023 Dental calculus 06/08/2023 Partial edentulism 06/08/2023 Chronic periodontitis 05/17/2023 Shoulder pain 12/30/2022 Obstructive sleep apnea syndrome 12/30/2022 Assessment & Plan (08/03/2023 1:22 PM EST): I advise to use her CPAP every night Glaucoma 12/30/2022 Acquired hypothyroidism 12/30/2022 Gastroesophageal reflux disease without esophagi tis 12/30/2022 Assessment & Plan (08/03/2023 1:23 PM EST): I advise patient to avoid NSAIDs, spicy and acid food, I advise to eat at the same time every day, I advise to elevate the head of the bed and take medications as prescribe Assessment & Plan (12/30/2022 9:43 AM EDT): I advise patient to avoid NSAIDs, spicy and acid food, I advise to eat at the same time every day, I advise to elevate the head of the bed and take medications as prescribe I changed omeprazole to pantoprazole Colon cancer screening 12/30/2022 Seasonal allergies 12/30/2022 Nausea and vomiting 09/05/2018 Pharyngitis 05/05/2018 ASCUS of cervix with negative high risk HPV 04/23 Mitral valve prolapse 12/03/2017 Increased frequency of urination 12/03/2017 Anxiety 12/03/2017 Essential hypertension 08/31/2017 Assessment & Plan (08/03/2023 1:22 PM EST): - Aerobic exercise to reduce BP. Initial goal of 30 min walk 3-5x/week. Increase as tolerated. - low-sodium diet (goal: <2g/day) and heart healthy diet such as DASH to reduce BP and prevent ASCVD. - Home BP monitoring 1-2 x day with goal of <140/90. - Seek immediate medical attention for chest pain, palpitations, SOB, syncope, or sudden changes in mental status. - Do not change or discontinue current prescriptions without first consulting health care provider Assessment & Plan (12/30/2022 9:42 AM EDT): - Aerobic exercise to reduce BP. Initial goal of 30 min walk 3-5x/week. Increase as tolerated. - low-sodium diet (goal: <2g/day) and heart healthy diet such as DASH to reduce BP and prevent ASCVD. - Home BP monitoring 1-2 x day with goal of <140/90. - Seek immediate medical attention for chest pain, palpitations, SOB, syncope, or sudden changes in mental status. - Do not change or discontinue current prescriptions without first consulting health care provider Encounters Date Type Department Care Team Description 07/12/2025 11:30 AM EST Office Visit [facility] [address] [place] [phone] Francisca Perez MD Pain in both thighs (Primary Dx); Essential hypertension; Left thigh pain; Gastroesophageal reflux disease without esophagitis; Acquired hypothyroidism 07/12/2025 Orders Only [address] [address] Francisca Perez MD Gastroesophageal reflux disease without esophagitis 07/12/[address] [address] Francisca Perez MD Medication Question 07/12/2025 Travel 07/12/[address] [address] Francisca Perez MD chart prep 07/09/2025 Refill [facility] [address] [place] [address] Francisca Perez MD Gastroesophageal reflux disease without esophagitis 07/05/2025 Patient Outreach [address] [address] Francisca Perez MD Pre-visit Planning (SDOH screening negative and tobacco screening negative) 05/25/[address] [address] Francisca Perez MD Hypothyroidism, unspecified type 05/17/2025 9:00 AM EDT Office Visit [facility] [address] [place] [phone] Mili, Britney Dental calculus (Primary Dx); Periodontal disease 05/08/2025 9:00 AM EDT Office Visit [facility] [address] [place] [phone] Mili, Britney Gingival bleeding (Primary Dx); Dental calculus; Stage 3 grade B localized periodontitis per AAP/EFP 2017 classification from Last 3 Months Immunizations Immunization Administration Dates Next Due Hep B, adult 10/05/2017 Influenza injectable quadriv alent IIV4 with preservative 10/05/2017 Influenza injectable quadrivalent preservative f ree 05/16/2019 Tdap 10/05/2017 Zoster, Recombinant 11/03/2021 Social History Tobacco Use Types Packs/Day Years Used Date Smoking Tobacco: Never Passive Smoke Exposure: Never Smokeless Tobacco: Never Tobacco Cessation:Counseling Given: Not Answered Alcohol Use Standard Drinks/Week Comments Never 0 [...] Orientation Straight 06/22/2022 10 :16 AM EDT Last Filed Vital Signs Vital Sign Reading [...] Mass Index 34.61 07/12/2025 11:36 AM EST Plan of Treatment Upcoming Encounters Date Type Department Care Team (Late st Contact Info) Description 09/11/2025 10:45 AM EST Telemedicine [facility] [address] [place] [address] Francisca Perez MD [address] [place] [address] 09/25/2025 9:30 AM EST Office Visit [facility] [address] [place] [address] Britney Garces [address] [place] [address] Health Maintenance Due Date Last Done Comments CT Colonography 1960 FIT 1960 HIV Screening 1960 Sigmoidoscopy 1960 Disability Screening 1962 Hepatitis C Screening 1980 Pneumococcal Vaccine: 50+ Years (1 of 2 - PCV) 1981 RSV Patients and Patients Aged 60 years or older (1 - Risk 50-74 years 1-dose series) 2012 Hepatitis B Vaccines (2 of 3 - 19+ 3-dose series) 11/02/2017 10/05/2017 Zoster Vaccines (2 of 2) 12/29/2021 11/03/2021 Colonoscopy 05/04/2023 05/04/2018 Colorectal Cancer Screening 09/08/2023 FOBT 09/07/2024 09/07/2023 Dental Oral Exam 02/20/2025 08/21/2024, , 10/08/2017 COVID-19 Vaccine ( - season) 2025 08/08/2021, 01/01/2021, 12/04/2020 Influenza Vaccine (#1) 2025 05/16/2019, 2017 Dental X-Ray: Bitewings 08/22/2025 08/21/20 24, 04/15/2023, 12/28/2018, Additional history exists Dental Prophylaxis 08/24/2025 02/20/2025, 1 , 12/21/2023, Additional history exists Mammogram 03/09/2026 03/09/2025, 02/20, 02/18/2023, Additional history exists Dental X-Ray: Full Mouth 04/16/2026 023, 09/01/2022, 10/08/2017 SDOH Screening 07/05/2026 07/05/2025 Alcohol/Substance Use Screening 07/12/2026 07/12/2025 Depression Screening 07/12/2026 07/12/2025, 07/12/20 Tobacco Screening 07/12/2026 07/12/2025 FIT DNA/Cologuard 09/07/2026 09/07/2023 DTaP/Tdap/Td Vaccines (2 - Td or Tdap) 10/05/2027 10/05/2017 Lipid Panel 09/09/2028 09/09/2023, 03/23, 01/01/2021 Cervical Cancer Screening 09/21/2028 HPV/Cotest 09/21/2028 09/21/2023, 02/09/2018 Pap Smear 09/21/2028 09/21/2023 HIB Vaccines Aged Out No longer eligi ble based on patient's age to complete this topic HPV Vaccines Aged Out No longer eligi ble based on patient's age to complete this topic Hepatitis A Vaccines Aged Out No long er eligible based on patient's age to complete this topic IPV Vaccines Aged Out No longer eligi ble based on patient's age to complete this topic Meningococcal B Vaccine Aged Out No l onger eligible based on patient's age to complete this topic Meningococcal Vaccine Aged Out No marvel mariluz eligible based on patient's age to complete this topic RSV under 20 months Aged Out No longe r eligible based on patient's age to complete this topic Rotavirus Vaccines Aged Out No longer eligible based on patient's age to complete this topic Procedures Procedure Name Priority Date/Time Associated Diagnosis Comments CASE PRESENTATION, DETAILED AND EXTENSIVE TREATMENT PLANNING Routine 05/17/2025 9:00 AM EDT Dental calculus Periodontal disease UR PERIODONTAL SCALING AND ROOT PLANING - 1 TO 3 TEETH PER QUADRANT Routine 05/17/2025 9:00 AM EDT Dental calculus Periodontal disease ORAL HYGIENE INSTRUCTIONS Routine 05/08/2025 9:00 AM EDT Gingival bleeding Dental calculus Stage 3 grade B localized periodontitis per AAP/EFP 2017 classification CASE PRESENTATION, DETAILED AND EXTENSIVE TREATMENT PLANNING Routine 05/08/2025 9:00 AM EDT Gingival bleeding Dental calculus Stage 3 grade B localized periodontitis per AAP/EFP 2017 classification UL PERIODONTAL SCALING AND ROOT PLANING - 1 TO 3 TEETH PER QUADRANT Routine 05/08/2025 9:00 AM EDT Gingival bleeding Dental calculus Stage 3 grade B localized periodontitis per AAP/EFP 2017 classification BI MAMMOGRAM SCREENING TOMOSYNTHESIS BILATERAL Routine 03/09/2025 9:55 AM EDT PROPHYLAXIS - ADULT Routine 02/20/2025 1 0:00 AM EDT BITEWINGS - 4 RADIOGRAPHIC IMAGES Routine 08/21/2024 9:00 AM EST PERIODIC ORAL EVALUATION - ESTABLISHED PATIENT Routine 08/21/2024 9:00 AM EST HPV MRNA E6/E7 REFLEX TO HPV 16, 18/45 Routine 09/21/2023 9:40 AM EST PAP SMEAR Routine 09/21/2023 9:40 AM EST ASCUS of cervix with negative high risk HPV LIPID PANEL, STANDARD Routine 09/09/2023 8:46 AM EST Essential hypertension LAB COLOGUARD COLON CANCER SCREEN Routine 09/07/2023 8:30 AM EST Colon cancer screening INTRAORAL - COMPLETE SERIES OF RADIOGRAPHIC IMAGES Routine 04/15/2023 11:30 AM EDT Encounter for dental examination Dental abscess Periodontal disease HM COLONOSCOPY Routine 05/04/2018 from Last 3 Months or Most Recently Relevant to Health Maintenance Results * BI Mammogram Screening Tomosynthesis Bilateral (03/09/2025 9:55 AM EDT) Anatomical Region Laterality Modality Breast Bilateral Mammography 03/09/2025 9:55 AM EDT Narrative 03/19/2025 4:36 PM EDT [address] [place] [address] Mammography Report Signed Patient: Shalini Song MR#: [id number] : 1960 Acct:[id number] Age/Sex: 64 / F ADM Date: 03/09/25 Loc: HO.MAMMO Attending Dr: Francisca Mckee MD Ordering Physician: Francisca Perez MD Results: 1Negative Date of Service: 03/09/25 Follow Up: 1 Year From Orig inal Mammogram Procedure(s): MM tomosynthesis screening BI Accession Number(s): [id number] cc: Francisca Perez MD EXAMINATION: MM SCREENING DIGITAL BREAST TOMOSYNTHESIS, BILATERAL CLINICAL INFORMATION: Screening. Asymptomatic. COMPARISON: Mammography: Comparison is made with available priors TECHNIQUE: Digital breast mammography with tomosynthesis is performed in both the craniocaudal and mediolateral oblique views along with computer-aided detection (CAD). FINDINGS: There are scattered areas of fibroglandular density (ACR BI-RADS breast composition Category b). There are no significant masses, abnormal calcifications, or other abnormalities. MM/MM tomosynthesis screening BI IMPRESSION: No mammographic evidence of malignancy. ASSESSMENT: BI-RADS BI-RADS 1 - Negative RECOMMENDATION: Routine annual mammography screening. 1 year F/U This examination should not preclude the clinical evaluation of a suspicious palpable abnormality. This patient's information was entered into a reminder system with a target due date for their next mammogram. Electronically signed by: Sabine Riddle DO 03/19/2025 04:34 PM EDT Dictated By: Sabine Riddle DO Signed By: <Electronically signed by Sabine Riddle DO in OV> 03/19/25 1634 DD/ 0955 TD/TT: 03/09/25 1010 Questioned Documents Examiner: Procedure Note Donotuseinterpreter, Image - 03/19/[address] [place] [address] Mammography Report Signed Patient: Jackie Song#: [id number] : 1960cct:[id number] Age/Sex: 64 / FADM Date: 03/09/25 Loc: HO.MAMMO Attending Dr: Francisca Mckee MD Ordering Physician: Francisca Perez MDResults: 1Negative Date of Service: 03/09/25Follow Up: 1 Year From Orig inal Mammogram Procedure(s): MM tomosynthesis screening BI Accession Number(s): [id number] cc: Francisca Perez MD EXAMINATION: MM SCREENING DIGITAL BREAST TOMOSYNTHESIS, BILATERAL CLINICAL INFORMATION: Screening. Asymptomatic. COMPARISON: Mammography: Comparison is made with available priors TECHNIQUE: Digital breast mammography with tomosynthesis is performed in both the craniocaudal and mediolateral oblique views along with computer-aided detection (CAD). FINDINGS: There are scattered areas of fibroglandular density (ACR BI-RADS breast composition Category b). There are no significant masses, abnormal calcifications, or other abnormalities. MM/MM tomosynthesis screening BI IMPRESSION: No mammographic evidence of malignancy. ASSESSMENT: BI-RADS BI-RADS 1 - Negative RECOMMENDATION: Routine annual mammography screening. 1 year F/U This examination should not preclude the clinical evaluation of a suspicious palpable abnormality. This patient's information was entered into a reminder system with a target due date for their next mammogram. Electronically signed by: Sabine Riddle DO 03/19/2025 04:34 PM EDT Dictated By: Sabine Riddle DO Signed By: <Electronically signed by Sabine Riddle DO in OV> 03/19/25 1634 DD/ 0955 TD/TT: 03/09/25 1010 Questioned Documents Examiner: Francisca Mckee MD IMG BI PROCEDURES Fin al Result * HPV mRNA E6/E7 w/Reflex to HPV Genotypes 16, 18/45 (09/21/2023 9:40 AM EST) HPV nRNA E6/E7 Not Detected Not Detected [facility] Comment:Methodology: Transcr iption-Mediated AmplificationThis assay detects E6/E7 viral messenger RNA (mRNA) from 14high-risk HPV types (16,18,31,33,35,39,45,51,52,56,58,59,66,68).Cervical sources are required for HPV testing.If a vaginal source from a patient who has had atotal hysterectomy with removal of cervix wassubmitted, please contact the testing laboratoryfor alternative testing options.For additional information, please refer [email or web address](This link if provided for information/educational purposes only.)THIS TEST WAS PERFORMED AT:[employer] [place] [phone] PILLAI MD HPV mRNA E6/E7 TNP [facility] HPV 16 RNA TNP [facility] HPV 18/45 RNA [facility] 09/21/2023 9:40 AM EST 09/23/2023 9:50 AM EST us Jose Raul Castle [facility] CYTOLOGY ORDERABLES F inal Result [facility] [address] [place] [phone] * Pap Smear (09/21/2023 9:40 AM EST) Swab Cervix uteri structure / Unknown 09/21/2023 9:40 AM EST 09/23/2023 9:50 AM EST Narrative [facility] - 10/06/2023 6:56 AM EST ----- ------- Name: Shalini Song Age/Sex: 63/F : 1960 Unit#: [id number] Attend Dr: JOSE RAUL CASTLE CNM Re09/21/23 Status: DEP [facility]ch: ----- ------- SPEC : [id number] RECD: 09/23/23-949 STATUS: JESUS BABB NUM: [id number] EVA: 09/21/23-[address]: JOSE RAUL CASTLE ENTERED: 09/23/23-111 SP TYPE: Pap Smr OTHR DR: ORDERED: Pap Smear Interpretation Satisfactory for evaluation. Negative for intraepithelial lesion or malignancy. HPV mRNA E6/E7: NOT DETECTED This assay detects E6/E7 viral messenger RNA (mRNA) from 14 high-risk HPV types (16, 18, 31, 33, 35, 39, 45, 51, 52, 56, 58, 59, 66, 68) HPV testing performed by [facility], [place], [place]. See reference laboratory portion of the EMR for entire report. Clinical Information LMP: Unknown date Previous PAP test: Unknown date/findings Other history: ASCUS of cervix with negative high risk HPV, 2018 Material Received ThinPrep-Cervical ----- ------- Signed (signature on file) GEETA Rikcs (ASCP) 10/06/23 0656 ----- ------- END OF REPORT Jose Raul [facility] CYTOLOGY ORDERABLES F inal Result Performing Organization Address [facility] Co de Phone Number [facility] [address] [place] [address] [phone] * (ABNORMAL) Lipid Panel, Standard (09/09/2023 8:46 AM EST) Triglycerides 145 <150 mg/dL [facility] Comment:Desirable Triglyceri de: less than 150 mg/dLBorderline High Triglyceride 150-199 mg/dLHigh Triglyceride: 200-499 mg/dLVery High Triglyceride: greater than or equal to 5OO mg/dL Cholesterol 210(H) <200 mg/dL [facility] Comment:Desirable Cholestero l: less than 200 mg/dLBorderline High Cholesterol: 200-239 mg/dLHigh Cholesterol: greater than 239 mg/dL LDL Cholesterol Calculated 129(H) <100 mg/dL [facility] Comment:Desirable LDL: less than 100 mg/dLNear Optimal/Above Optimal LDL: 110- 129 mg/dLBorderline High LDL: 130-159 mg/dLHigh LDL: 160-189 mg/dLVery High LDL: greater than or equal to 190 mg/dL HDL Cholesterol 52 >40 mg/dL [facility] Comment:Desirable HDL: great er than 40 mg/dL Note: This HDL assay may give artificially low results in patients with liver disease. Blood Venous blood specimen / Unknown 09/09/2023 8:46 AM EST 09/09/2023 12:00 PM EST us Francisca Mckee MD LAB BLOOD ORDERABLES Final Result Performing Organization Address [facility] Co de Phone Number [facility] [address] [place] [address] [phone] * Cologuard?? colon cancer screening (09/07/2023 8:30 AM EST) Cologuard Result Negative Negative 09/18/19 6:04 AM EST Qian Xiao'er (CLIA #:[id number]) Comment: NEGATIVE TEST RESULT. A negative Cologuard result indicates a low likelihood that a colorectal cancer (CRC) or advanced adenoma (adenomatous polyps with more advanced pre-malignant features) is present. The chance that a person with a negative Cologuard test has a colorectal cancer is less than 1 in 1500 (negative predictive value >99.9%) or has an advanced adenoma is less than 5.3% (negative predictive value 94.7%). These data are based on a prospective cross-sectional study of 10,000 individuals at average risk for colorectal cancer who were screened with both Cologuard and colonoscopy. (Rosi Garcia al, N Engl J Med 2014;370(14):3516-1287) The normal value (reference range) for this assay is negative. COLOGUARD RE-SCREENING RECOMMENDATION: Periodic colorectal cancer screening is an important part of preventive healthcare for asymptomatic individuals at average risk for colorectal cancer. Following a negative Cologuard result, the [place] [employer] and U.S. Multi-Society Task Force screening guidelines recommend a Cologuard re-screening interval of 3 years. References: [place] [employer] Guideline for Colorectal Cancer Screening: https://www.cancer.org/cancer/vieve-zsmsqc-txffpc/cvgpcwrjc-vgoslmtag-nipafss/ac s-rec ommendations.html.; Edgar DK, Yvette CR, Radha RobinK, Colorectal Cancer Screening: Recommendations for Physicians and Patients from the U.S. Multi-Society Task Force on Colorectal Cancer Screening , Am J Gastroenterology 2017; 112:6259-4557. TEST DESCRIPTION: Composite algorithmic analysis of stool DNA-biomarkers with hemoglobin immunoassay. Quantitative values of individual biomarkers are not reportable and are not associated with individual biomarker result reference ranges. Cologuard is intended for colorectal cancer screening of adults of either sex, 45 years or older, who are at average-risk for colorectal cancer (CRC). Cologuard has been approved for use by the U.S. FDA. The performance of Cologuard was established in a cross sectional study of average-risk adults aged 50-84. Cologuard performance in patients ages 45 to 49 years was estimated by sub-group analysis of near-age groups. Colonoscopies performed for a positive result may find as the most clinically significant lesion: colorectal cancer [4.0%], advanced adenoma (including sessile serrated polyps greater than or equal to 1cm diameter) [20%] or non- advanced adenoma [31%]; or no colorectal neoplasia [45%]. These estimates are derived from a prospective cross-sectional screening study of 10,000 individuals at average risk for colorectal cancer who were screened with both Cologuard and colonoscopy. (Rosi Garcia al, N Engl J Med 2014;370(14):1681-3461.) Cologuard may produce a false negative or false positive result (no colorectal cancer or precancerous polyp present at colonoscopy follow up). A negative Cologuard test result does not guarantee the absence of CRC or advanced adenoma (pre-cancer). The current Cologuard screening interval is every 3 years. ([place] [employer] and U.S. Multi-Society Task Force). Cologuard performance data in a 10,000 patient pivotal study using colonoscopy as the reference method can be accessed at the following location: [email or web address]. Additional description of the Cologuard test process, warnings and precautions can be found at [email or web address]. Stool specimen (specimen) 09/07/2023 8:30 AM EST 09/09/2023 3:50 PM EST us Francisca Mckee MD LAB MOLECULAR DIAGNOS TICS ORDERABLES Final Result Qian Xiao'er (CLIA #:[id number]) [place] [address], * Hm Colonoscopy (05/04/2018) Colonoscopy Normal Normal Comment:Recommended 5 year f ollow up us Historical Provider HEALTH MAINTENANCE Final Result from Last 3 Months or Most Recently Relevant to Health Maintenance Insurance [facility] C3 DENTAL-[facility] MEDICAID STAND ADULT Care Teams Deck Supervisor Relationship Specialty Start Date End Date Francisca Perez MD [address] [place] [id number] PCP - General Family Medicine 04/26/19
--- OUTSIDE RECORDS SUMMARY | 2025-07-13 08:05 | XMS_ITS | Encounter Summary ---
Author Organization [employer] Address [address] [place] [address] Care Team Providers Care Housekeeper Caregiver Name Role Phone Francisca Perez MD Primary Care Provide r Encounter Details Date Type Department Care Team ([facility] Contact Info) Description 07/12/2025 Orders Only [facility] MEDICINE [address] [place] [address] Francisca Perez MD [address] [place] [address] Gastroesophageal reflux disease without esophagitis Social History [...] Alberts [place] documented as of this encounter Plan of Treatment Upcoming Encounters Date Type Department Care Team (Late st Contact Info) Description 09/11/2025 10:45 AM EST Telemedicine [facility] MEDICINE [address] [place] [address] Francisca Perez MD [address] [place] [address] 09/25/2025 9:30 AM EST Office Visit [facility] ADULT DENTAL [address] [place] [address] Britney Garces [address] [place] [address] documented as of this encounter Visit Diagnoses Diagnosis Gastroesophageal reflux disease without esophagitis Esophageal reflux documented in this encounter Additional Health Concerns Assessment Noted Time PHQ-9 Depression Total Score: 0 07/12/20 25 11:37 AM EST documented as of this encounter Care Teams Housekeeper Caregiver Relationship Specialty Start Date End Date Francisca Perez MD [address] [place] [id number] PCP - General Family Medicine 04/26/19 documented as of this encounter
--- OUTSIDE RECORDS SUMMARY | 2025-07-13 08:05 | XMS_ITS | Encounter Summary ---
Author Organization [employer] Address [address] [place] [address] Care Team Providers Care Second Miller Name Role Phone Francisca Perez MD Primary Care Provide r Encounter Details Date Type Department Care Team (Latest Contact Info) Description 07/12/2025 Travel Social History Tobacco Use Types Packs/Day Years [...] 11:37 AM EST Yara Almodovar [place] * Patient Health Questionnaire-9 Score Answer Date of Assessment Author 0 07/12/2025 11:37 AM EST Yara Almodovar [place] documented as of this encounter Plan of Treatment Upcoming Encounters Date Type Department Care Team (Late st Contact Info) Description 09/11/2025 10:45 AM EST Telemedicine [facility] MEDICINE [address] [place] [address] Francisca Perez MD [address] [place] [address] 09/25/2025 9:30 AM EST Office Visit [facility] ADULT DENTAL [address] [place] [address] MiliBritney [address] [place] [address] documented as of this encounter Visit Diagnoses Not on filedocumented in this encounter Additional Health Concerns Assessment Noted Time PHQ-9 Depression Total Score: 0 07/12/20 25 11:37 AM EST documented as of this encounter Care Teams Second Miller Relationship Specialty Start Date End Date Francisca Perez MD [address] [place] [phone] PCP - General Family Medicine 04/26/19 documented as of this encounter
--- OUTSIDE RECORDS SUMMARY | 2025-07-13 08:05 | XMS_ITS | Encounter Summary ---
Author Organization [employer] Address [address] [place] [address] Care Team Providers Care Private Sector Executive Name Role Phone Francisca Perez MD Primary Care Provide r Encounter Details Date Type Department Care Team ([facility] Contact Info) Description 06/01/2023 Abstract [facility] [address] [place] [address] Ofe Ramos Social History Tobacco Use Types Packs/Day Years [...] Info) Description 09/11/2025 10:45 AM EST Telemedicine [facility] [address] [place] [address] Francisca Perez MD [address] [place] [address] 09/25/2025 9:30 AM EST Office Visit [facility] ADULT [facility] [address] [place], [place] [phone] Britney Garces [address] [place] [address] documented as of this encounter Procedures Procedure Name Priority Date/Time Associated Diagnosis Comments COLONOSCOPY Routine 05/04/2018 documented in this encounter Results * Hm Colonoscopy (05/04/2018) Colonoscopy Normal Normal Comment:Recommended 5 year f ollow up us Historical Provider HEALTH MAINTENANCE Final Result documented in this encounter Visit Diagnoses Not on filedocumented in this encounter Additional Health Concerns Assessment Noted Time PHQ-9 Depression Total Score: 0 12/31/19 23 9:03 AM EDT documented as of this encounter Care Teams Private Sector Executive Relationship Specialty Start Date End Date Francisca Perez MD [address] [place] [address] PCP - General Family Medicine 04/26/19 documented as of this encounter
[2025-07-13 11:32] LABS: MANUAL DIFF FLAG NO
[2025-07-13 11:46] LABS: Hematocrit 42.8 % (37.0-47.0); Hemoglobin 13.6 g/dl (12.0-16.0); Imm Gran Abs Auto 0.01 X10*3/uL (0.00-0.03); Imm Gran Pct Auto 0.1 % (0.0-0.4); Lymphocytes Absolute Auto 2.4 X10*3/uL (1.2-4.9); Mean Corpuscular HGB Conc 31.8 g/dl (31.0-35.0); Mean Corpuscular Hemoglobin 30.5 pg (27.0-33.0); Mean Corpuscular Volume 96.0 fL (80.0-98.0); NRBC Abs Auto 0.000 X10*3/uL (0.0-0.012); NRBC Pct Auto 0.0 /100WBC (0.0-0.2); Platelet Count 292 X10*3/uL (160-400); Red Blood Count 4.46 X10*6/uL (4.20-5.50); White Blood Count 7.4 X10*3/uL (4.8-10.8)
[2025-07-13 12:31] LABS: HIV Num 1 0.03 S/CO (0.00-0.99); ~HepC Num1 0.20 S/CO (0.00-0.79); ~Hepatitis C Antibody Nonreactive (Nonreactive)
[2025-07-13 13:29] LABS: Alanine Aminotransferase 24 U/L (0-31); Albumin Level 4.5 g/dL (3.5-5.0); Alkaline Phosphatase 95 U/L (39-117); Anion Gap 11 (12-20); Aspartate Amino Transferase 25 U/L (5-31); Blood Urea Nitrogen 19 mg/dL (9-16); Calcium 10.0 mg/dL (8.4-10.2); Carbon Dioxide 30 mmol/L (22-29); Chloride 106 mmol/L (96-108); Cholesterol 215 mg/dL (<200); Estimated Glomerular Filt Rate > 60; HDL Cholesterol 54 mg/dL (>40); Potassium 3.9 mmol/L (3.3-5.1); Sodium 143 mmol/L (135-145); Total Protein 8.1 g/dL (6.5-8.0); Triglycerides 135 mg/dL (<150)
== END 2025-07-13 08:02 | disposition home or self-care (01) ==
LOC: HO.HHCL 08:01
PROVIDERS: PCP Internal Medicine; Visit Provider Internal Medicine
DX: Z11.59 Encounter for screening for other viral diseases (principal); Z11.4 Encounter for screening for human immunodeficiency virus [HIV]; I10 Essential (primary) hypertension; E03.9 Hypothyroidism, unspecified
CPT/HCPCS: 36415; 80053; 80061; 82306; 83036; 84443; 85025; 86803; 87389